=== PATIENT | male | born 1950 | race Caucasian/White ===

== ENCOUNTER 2018-09-17 15:51 | Observation (INO) | payer MEDICARE, OTHER ==
[2018-09-17] MEDS ORDERED: Sodium Chloride 0.9% 1000 ML 1,000 ML IV STA ×2 (16:17→19:00)
[2018-09-17] MEDS ORDERED: Zofran 4 MG/2 ML VIAL IV ONE (16:17)
--- NOTE | 2018-09-17 16:26 | ERPHSYRPT ---
- History of Present Illness Time Seen by Provider: 09/17/18 16:10 Historian: patient Exam Limitations: clinical condition Patient Subjective Stated Complaint: vomiting since yesterday Triage Nursing Assessment: Pt c/o of N&V since yesterday, vomits when he consumes food or drink, denies pain of abdomen with palpation, last BM today, BP 173/77, bowel sounds heard in all 4 quadrants, pulses normal, denies pain, doesn't appear to be in distress Physician History: PATIENT WITH A HISTORY OF HYPERTENSION AND TYPE 2 DIABETES COMPLAINS OF FREQUENT EPISODES OF EMESIS SINCE YESTERDAY EVERY 2 HOURS. HAS ASSOCIATED CRAMPY ABDOMINAL PAIN, ASSOCIATED WITH DIZZINESS AND WEAKNESS. DENIES DIARRHEA, FEVER, OR URINARY SYMPTOMS. Timing/Duration: week(s) Activities at Onset: none Quality: cramping Abdominal Pain Onset Location: periumbilical Pain Radiation: no radiation Severity of Pain-Max: mild Severity of Pain-Current: mild Modifying Factors: Improves With: vomiting Associated Symptoms: nausea, vomiting, weakness Previous symptoms: same symptoms as today Allergies/Adverse Reactions: codeine Allergy (Verified 09/17/18 16:06) Home Medications: Metformin HCl 500 mg [Glucophage 500 MG] 500 mg PO BID 11/09/14 [History] Carvedilol 3.125 mg [Coreg 3.125 MG] 3.125 mg PO BID 09/17/18 [History] Insulin NPH Human Isophane [Novolin N] 35 unit SQ BID 09/17/18 [History] Lisinopril/Hydrochlorothiazide [Lisinopril-Hctz 20-12.5 mg Tab] 1 each PO DAILY 09/17/18 [History] Pravastatin Sodium 40 mg PO DAILY 09/17/18 [History] Hx Tetanus, Diphtheria Vaccination/Date Given: Yes Hx Influenza Vaccination/Date Given: Yes Hx Pneumococcal Vaccination/Date Given: No - Review of Systems Constitutional: No Fever, No Chills Eyes: No Symptoms Ears, Nose, & Throat: No Symptoms Respiratory: No Symptoms, No Cough, No Dyspnea Cardiac: No Symptoms, No Chest Pain, No Edema, No Syncope Abdominal/Gastrointestinal: Abdominal Pain, Nausea, Vomiting, No Diarrhea Genitourinary Symptoms: No Symptoms, No Dysuria Musculoskeletal: No Symptoms, No Back Pain, No Neck Pain Skin: No Rash Neurological: No Dizziness, No Focal Weakness, No Sensory Changes Psychological: No Symptoms Endocrine: No Symptoms All Other Systems: Reviewed and Negative - Past Medical History Pertinent Past Medical History: Yes Cardiac History: High Cholesterol, Hypertension Endocrine Medical History: Diabetes Type II - Past Surgical History Past Surgical History: Yes Musculoskeletal: Orthopedic Surgery Other Surgical History: left rotator cuff - Social History Smoking Status: Never smoker Exposure to second hand smoke: Yes Drug Use: none Patient Lives Alone: No - Nursing Vital Signs Nursing Vital Signs: Initial Vital Signs Pulse Rate 64 09/17/18 15:56 Blood Pressure 173/77 09/17/18 15:56 O2 Sat by Pulse Oximetry 97 09/17/18 15:56 Pain Scale Pain Intensity 0 - Physical Exam General Appearance: no apparent distress, alert Eye Exam: PERRL/EOMI, eyes nml inspection Ears, Nose, Throat Exam: normal ENT inspection, pharynx normal, moist mucous membranes Neck Exam: normal inspection, non-tender, supple, full range of motion Respiratory Exam: normal breath sounds, lungs clear, No respiratory distress Cardiovascular Exam: regular rate/rhythm, normal heart sounds Gastrointestinal/Abdomen Exam: soft, normal bowel sounds, tenderness ( PERIUMBILICAL TENDERNESS), No mass Back Exam: normal inspection, normal range of motion, No CVA tenderness, No vertebral tenderness Extremity Exam: normal inspection, normal range of motion, pelvis stable Neurologic Exam: alert, oriented x 3, cooperative, normal mood/affect, nml cerebellar function, sensation nml, No motor deficits Skin Exam: normal color, warm, dry SpO2 Interpretation: normal SpO2: 97 Oxygen Delivery: Room Air - CT Exams Abdomen/Pelvis CT Interpretation: Discussed w/radiologist (COMPARED TO 02/14/2010, ENLARGING 1CM GALLSTONE AND ENLARGING 3.2CM RIGHT RENAL CYST. NONOBSTRUCTING 3MM BILATERAL RENAL STONES) Ordered Tests: Active Orders 24 hr Category Date Time Status Clean Catch Urine Specimen STAT Care 09/17/18 16:17 Active EKG-ER Only STAT Care 09/17/18 16:27 Active Orthostatic Vital Signs STAT Care 09/17/18 16:17 Active ABDOMEN AND PELVIS W CONTRAST [CT] Stat Exams 09/17/18 16:22 Taken AMYLASE Routine Lab 09/17/18 16:43 Completed CBC W DIFF Stat Lab 09/17/18 16:43 Completed CMP Routine Lab 09/17/18 16:43 Completed LIPASE Routine Lab 09/17/18 16:43 Completed MAGNESIUM Routine Lab 09/17/18 16:43 Completed TROPONIN Q3H Lab 09/17/18 16:43 Completed TROPONIN Q3H Lab 09/17/18 19:30 Ordered TROPONIN Q3H Lab 09/17/18 22:30 Ordered TROPONIN Q3H Lab 09/18/18 01:30 Ordered TROPONIN Q3H Lab 09/18/18 04:30 Ordered UA W/RFX UR CULTURE Stat Lab 09/17/18 16:00 Completed Medication Summary Discontinued Medications Generic Name Dose Route Start Last Admin Trade Name Freq PRN Reason Stop Dose Admin Sodium Chloride 1,000 mls @ 999 mls/hr 09/17/18 16:17 09/17/18 18:12 Sodium Chloride 0.9% 1000 Ml IV 09/17/18 17:17 Infused .Q1H1M STA Infusion Sodium Chloride Confirm 09/17/18 16:28 Sodium Chloride 0.9% 1000 Ml Administered 09/17/18 16:29 Dose 1,000 mls @ ud .ROUTE .STK-MED ONE Ondansetron HCl 4 mg 09/17/18 16:17 09/17/18 16:48 Zofran 4 Mg/2 Ml Vial IV 09/17/18 16:18 4 mg STAT ONE Administration Ondansetron HCl Confirm 09/17/18 16:28 Zofran 4 Mg/2 Ml Vial Administered 09/17/18 16:29 Dose 4 mg .ROUTE .STK-MED ONE Lab/Rad Data: Laboratory Result Diagrams 09/17/18 16:43 09/17/18 16:43 Laboratory Results 09/17/18 09/17/18 09/17/18 Range/Units 16:43 16:43 16:00 WBC 10.8 H (4.0-10.5) K/mm3 RBC 5.99 H (4.1-5.6) M/mm3 Hgb 17.6 (12.5-18.0) gm/dl Hct 50.2 H (42-50) % MCV 83.8 (78-100) fl MCH 29.3 (26-32) pg MCHC 35.1 (32-36) g/dl RDW 13.2 (11.5-14.0) % Plt Count 219 (150-450) K/mm3 MPV 10.3 H (6-9.5) fl Gran % 87.7 H (36.0-66.0) % Eos # (Auto) 0 (0-0.5) Absolute Lymphs (auto) 0.68 L (1.0-4.6) Absolute Monos (auto) 0.62 (0.0-1.3) Lymphocytes % 6.3 L (24.0-44.0) % Monocytes % 5.7 (0.0-12.0) % Eosinophils % 0.0 (0.00-5.0) % Basophils % 0.3 (0.0-0.4) % Absolute Granulocytes 9.51 H (1.4-6.9) Basophils # 0.03 (0-0.4) Sodium 138 (137-145) mmol/L Potassium 4.4 (3.5-5.1) mmol/L Chloride 94 L (98-107) mmol/L Carbon Dioxide 31 H (22-30) mmol/L Anion Gap 17.1 H (5-15) MEQ/L BUN 16 (9-20) mg/dL Creatinine 0.69 (0.66-1.25) mg/dL Estimated GFR > 60.0 ML/MIN Glucose 162 H (74-106) mg/dL Calcium 10.1 (8.4-10.2) mg/dL Magnesium 2.1 (1.6-2.3) mg/dL Total Bilirubin 0.80 (0.2-1.3) mg/dL AST 25 (17-59) U/L ALT 26 (0-50) U/L Alkaline Phosphatase 82 (38-126) U/L Troponin I < 0.012 (0.000-0.034) ng/mL Serum Total Protein 8.7 H (6.3-8.2) g/dL Albumin 5.3 H (3.5-5.0) g/dL Amylase 90 (30-110) U/L Lipase 59 (23-300) U/L Urine Color YELLOW (YELLOW) Urine Appearance CLEAR (CLEAR) Urine pH 6.0 (5-6) Ur Specific [place] 1.020 (1.005-1.025) Urine Protein 100 (Negative) Urine Ketones SMALL (NEGATIVE) Urine Blood NEGATIVE (0-5) Puneet/ul Urine Nitrite NEGATIVE (NEGATIVE) Urine Bilirubin NEGATIVE (NEGATIVE) Urine Urobilinogen NEGATIVE (0-1) mg/dL Ur Leukocyte Esterase NEGATIVE (NEGATIVE) Urine WBC (Auto) 0-2 (0-5) /HPF Urine RBC (Auto) 0-2 (0-2) /HPF U Epithel Cells (Auto) NONE SEEN (FEW) /HPF Urine Mucus (Auto) SLIGHT (NEGATIVE) /HPF Urine Culture Reflexed NO (NO) Urine Glucose NEGATIVE (NEGATIVE) mg/dL - Progress Progress: unchanged Progress Note: 09/17/18 18:48 IV NORMAL SALINE 1 LITER BOLUS, ZOFRAN 4MG, PROTONIX 40MG IV. HAD EPISODES OF DRY HEAVES AND EMESIS X 2, PHENERGAN 25MG IV Discussed with Dr.: Cornejo (DISCUSSED WITH DR CORNEJO AT 1845 FOR OBSERVATION) - Departure Time of Disposition: 20:00 Departure Disposition: Observation Clinical Impression: ACUTE GASTRITIS, INTRACTABLE EMESIS, CHOLELITHIASIS Condition: Stable Critical Care Time: No Referrals: NIDHI BAIG MD [Primary Care Provider] -
[2018-09-17] MEDS ORDERED: Zofran 4 MG/2 ML VIAL ONE (16:28)
[2018-09-17] MEDS ORDERED: Sodium Chloride 0.9% 1000 ML 1,000 ML ONE (16:28)
[2018-09-17 17:00] LABS: BASOPHIL % 0.3 % (0.0-0.4); Basophil (Absolute #) 0.03 (0-0.4); Eosinophil (Absolute #) 0 (0-0.5); Granulocyte Absolute (ANC) 9.51 (1.4-6.9); Granulocytes % 87.7 % (36.0-66.0); Hematocrit 50.2 % (42-50); Hemoglobin 17.6 gm/dl (12.5-18.0); Lymphocyte (Absolute #) 0.68 (1.0-4.6); Lymphocytes % 6.3 % (24.0-44.0); Mean Cell Volume 83.8 fl (78-100); Mean Corpuscular Hgb Concent. 35.1 g/dl (32-36); Mean Platelet Volume 10.3 fl (6-9.5); Monocyte (Absolute #) 0.62 (0.0-1.3); Monocytes % 5.7 % (0.0-12.0); Platelet Count 219 K/mm3 (150-450); Red Blood Count 5.99 M/mm3 (4.1-5.6); Red Cell Distribution Width 13.2 % (11.5-14.0); White Blood Count 10.8 K/mm3 (4.0-10.5)
[2018-09-17 17:03] LABS: Mean Corpuscular Hemoglobin 29.3 pg (26-32)
[2018-09-17 17:27] LABS: ALBUMIN 5.3 g/dL (3.5-5.0); ALKALINE PHOSPHATASE 82 U/L (38-126); AMYLASE 90 U/L (30-110); ANION GAP 17.1 MEQ/L (5-15); BLOOD UREA NITROGEN 16 mg/dL (9-20); CHLORIDE 94 mmol/L (98-107); Calcium 10.1 mg/dL (8.4-10.2); Carbon Dioxide 31 mmol/L (22-30); Creatinine 1 0.69 mg/dL (0.66-1.25); Glucose 162 mg/dL (74-106); LIPASE 59 U/L (23-300); Potassium 4.4 mmol/L (3.5-5.1); SGOT/AST 25 U/L (17-59); SGPT/ALT 26 U/L (0-50); SODIUM 138 mmol/L (137-145); Total Protein 8.7 g/dL (6.3-8.2)
[2018-09-17 17:29] LABS: TROPONIN < 0.012 ng/mL (0.000-0.034)
[2018-09-17 18:04] LABS: Appearance CLEAR (CLEAR); Bilirubin NEGATIVE (NEGATIVE); Blood NEGATIVE Ery/ul (0-5); Glucose NEGATIVE (NEGATIVE); Ketones SMALL (NEGATIVE); Leukocyte Esterase NEGATIVE (NEGATIVE); Nitrite NEGATIVE (NEGATIVE); Protein,Urine Dip 100 (Negative); Urobilinogen NEGATIVE mg/dL (0-1)
[2018-09-17] MEDS ORDERED: Phenergan 25 MG INJ ONE (18:49)
[2018-09-17] MEDS ORDERED: Phenergan 25 MG INJ IM PRN (18:54)
[2018-09-17] MEDS ORDERED: MORPHINE SULFATE 2 MG INJ IV PRN (18:54)
[2018-09-17] MEDS ORDERED: TYLENOL 325 MG PO PRN (18:54)
[2018-09-17] MEDS ORDERED: NovoLOG Insulin SQ PRN (18:54)
[2018-09-17] MEDS ORDERED: Zofran 4 MG/2 ML VIAL IV PRN (18:54)
[2018-09-17] MEDS ORDERED: Phenergan 25 MG INJ IV ONE (19:00)
[2018-09-17] MEDS: Sodium Chloride 0.9% 1000 ML 1,000 ML IV SCH (20:19)
[2018-09-17] MEDS: Coreg 3.125 MG PO SCH (21:58)
[2018-09-18] MEDS: Sodium Chloride 0.9% 1000 ML 1,000 ML IV SCH (04:14)
[2018-09-18] MEDS ORDERED: Lactated Ringers 1,000 ML IV ONE (06:28)
[2018-09-18 07:15] VITALS: O2SAT 96
--- NOTE | 2018-09-18 08:39 | XRAY ---
Indication: Abdominal pain and emesis. History kidney stones. Multiple contiguous axial images obtained through the abdomen and pelvis using 80 cc Isovue 370 contrast only. Comparison: CT renal stone study February 14, 2010. Lung bases demonstrates moderate bibasilar dependent atelectasis/scarring. Stable tiny left base calcified granuloma. No infiltrate or effusion. Heart is not enlarged. Noncontrasted stomach and bowel loops appear nonobstructed. Normal appendix. Stable mild sigmoid diverticulosis without diverticulitis. No free fluid/air. Interval enlarging 3.2 cm right renal cyst. 7 mm left mid renal cortical cyst not well seen on previous noncontrast exam. Stable 3 mm calculus in the left lower renal calyx. Stable mild nonspecific bilateral perinephric stranding. No hydronephrosis or hydroureter. Also interval enlarging 1 cm gallstone. Stable benign appearing prostate calcifications. Remaining liver, gallbladder, pancreas, spleen, adrenal glands, kidneys, ureters, and bladder appear unremarkable. There remains mild aortoiliac calcifications. No AAA or pathologic retroperitoneal lymphadenopathy. Osseous structures intact again with mild degenerative changes throughout the spine and minimal levo scoliosis. Stable small fatty umbilical hernia. Impression: 1. Nonobstructing left renal micro-calculus. Bilateral renal cysts. 2. Enlarging cholelithiasis without cholecystitis. 3. Again sigmoid diverticulosis, benign prostate calcifications, and small fatty umbilical hernia. CT DI 20.82
[2018-09-18] MEDS ORDERED: Zestril 10 MG PO SCH (10:00)
[2018-09-18] MEDS ORDERED: FLUZONE QUAD (36mo-64yo) 2018-2019 SYRINGE IM ONE (10:00)
[2018-09-18] MEDS ORDERED: hydroDIURIL 25 MG PO SCH (10:00)
[2018-09-18] MEDS ORDERED: NON-FORMULARY ITEM (Pravastatin Sodium [Pravastatin Sodium] 40 MG) PO SCH (10:00)
[2018-09-18] MEDS ORDERED: PROTONIX 40 MG IV IV SCH (10:00)
[2018-09-18] MEDS: Coreg 3.125 MG PO SCH (10:39)
--- NOTE | 2018-09-18 11:00 | XRAY ---
Indication: Gallstone on recent CT. Two-dimensional gallbladder sonogram performed. Comparison: None Gallbladder normally distended with a 1 cm mobile stone. No gallbladder wall thickening or pericholecystic fluid. Common bile duct measures 2.8 mm. No intrahepatic biliary distention. Right kidney measures 13.4 cm in length with a 2.6 cm upper pole cyst. No solid renal mass or hydronephrosis. Impression: 1. Solitary cholelithiasis without cholecystitis or abnormal biliary distention. 2. Right renal cyst.
[2018-09-18 12:19] VITALS: BP 160/72; PULSE 58
--- NOTE | 2018-09-18 14:28 | PCM.DCORD ---
- Discharge Discharge Date: 09/18/18 Disposition: Home, Self-Care Prescriptions: Continue Metformin HCl 500 mg [Glucophage 500 MG] 500 mg PO BID Pravastatin Sodium 40 mg PO DAILY Insulin NPH Human Isophane [Novolin N] 35 unit SQ BID Carvedilol 3.125 mg [Coreg 3.125 MG] 3.125 mg PO BID Lisinopril/Hydrochlorothiazide [Lisinopril-Hctz 20-12.5 mg Tab] 1 each PO DAILY Follow up with: NIDHI BAIG MD [Primary Care Provider] - 1 Week
[2018-09-18] MEDS ORDERED: ZOCOR 20MG PO SCH (22:00)
--- NOTE | 2018-09-19 13:37 | SSS ---
DISCHARGE DIAGNOSES: 1) RIGHT UPPER QUADRANT ABDOMINAL PAIN. 2) CHOLELITHIASIS. 3) DIABETES MELLITUS TYPE 2. 4) NONOBSTRUCTING NEPHROLITHIASIS. 5) SIGMOID DIVERTICULOSIS. HISTORY: The patient is a 68 year-old white male patient who presented to the emergency room with complaints of right upper quadrant pain and vomiting. The patient has a known history of cholelithiasis from CT scan back in 2013. The patient was dehydrated from the vomiting and due to the findings of the stone he was felt to need to be admitted to the hospital for observation and possible surgical consultation. PAST MEDICAL/SURGICAL HISTORY: Otherwise significant for his diabetes mellitus type 2. HOME MEDICATIONS: Metformin 500 mg b.i.d., carvedilol 3.125 mg b.i.d., Novolin insulin 35 units b.i.d. and lisinopril hydrochlorothiazide 20/12.5 mg daily, Pravastatin 40 mg daily. ALLERGIES: CODEINE. PHYSICAL EXAMINATION: The patient's vital signs on admission showed a pulse of 64, blood pressure 173/77. O2 saturation 97%. HEENT: Normocephalic, atraumatic. Pupils equal round reactive to light. Extraocular movements intact. Oropharynx is pink and moist. NECK: Supple without lymphadenopathy, thyromegaly or JVD. CHEST: Clear to auscultation. HEART: Regular rate and rhythm. ABDOMEN: By the time I saw him the next morning was soft, nontender, nondistended. No palpable masses. No guarding or rebound. EXTREMITIES: Without clubbing, cyanosis or edema. NEUROLOGIC: The patient is alert and oriented x3. LAB DATA AND TESTS: Showed white blood cell count slightly elevated 10,800, hemoglobin 17.6, PLT count 217,000. His electrolytes were essentially normal. BUN 16, creatinine 0.69. He did have UA which showed small ketones but was otherwise essentially negative. He had CT scan performed which showed enlarging gallstone without evidence of obstruction. He had also nonobstructing kidney stones and sigmoid diverticulosis without diverticulitis. HOSPITAL COURSE: The patient was admitted to medicine simms and given IV fluids. By the next morning he was essentially pain free and had no acute abdominal findings. We ordered ultrasound of the gallbladder which was essentially negative other than the presence of a stone. The patient was allowed to have a meal which he tolerated quite well and therefore appeared to not have any pending need for surgery. He was therefore discharged home with instructions to follow up with his regular doctor, Dr. Mendez, next week for possible surgical consultation in the future for a possible elective cholecystectomy. The patient was instructed to continue his home medications and to call if he had any further problems in the interim.
== END 2018-09-18 15:25 | disposition home or self-care (01) ==
LOC: ED 15:51 → MED SURG 19:38
PROVIDERS: ADMIT Family Medicine; ATTEND Family Medicine
DX: K80.20 Calculus of gallbladder without cholecystitis without obstruction (principal); E11.9 Type 2 diabetes mellitus without complications; Z79.4 Long term (current) use of insulin; N20.0 Calculus of kidney; K57.90 Diverticulosis of intestine, part unspecified, without perforation or abscess without bleeding; Z79.899 Other long term (current) drug therapy; Z23 Encounter for immunization
CPT/HCPCS: 36415; 74177; 76705; 80053; 81001; 82150; 82962; 83690; 83735; 84484; 85025; 93005; 96360; 96374; 96375; 99285; G0378; 90662; G0008; J2405; J2550; Q9967; A9270-GY

== ENCOUNTER 2018-11-03 10:59 | Day surgery (SDC) | payer MEDICARE, OTHER ==
--- NOTE | 2018-11-03 10:05 | HP ---
DATE OF SURGERY: 11/03/2018 HISTORY OF PRESENT ILLNESS: The patient is a 68 year-old had some vomiting, dry heaving. CT scan showed cholelithiasis. He also had some gallstones. No jaundice. No change in bowel movements. Feeling better now. It was felt that he had symptomatic cholelithiasis chronic cholecystitis. I recommend cholecystectomy. PAST MEDICAL HISTORY: Diabetes, hypertension, hypercholesterolemia. PAST SURGICAL HISTORY: Shoulder surgery in the past. MEDICATIONS: Metformin, aspirin, carvedilol, Pravastatin, lisinopril hydrochlorothiazide. ALLERGIES: CODEINE. FAMILY HISTORY: Negative in regards to this problem. SOCIAL HISTORY: No smoking or alcohol abuse. REVIEW OF SYSTEMS: Twelve systems reviewed. No chest pain or palpitations other systems negative or noncontributory as above and per preadmission questionnaire. PHYSICAL EXAMINATION: GENERAL: No acute distress. HEENT: Sclerae nonicteric. NECK: No JVD. CHEST: Equal excursion, nonlabored breathing. CVS: Regular rate and rhythm. ABDOMEN: Soft. No peritoneal signs. EXTREMITIES: No significant edema. NEURO: Alert, oriented, moving extremities symmetrically. No gross motor deficits noted. IMPRESSION: Symptomatic cholelithiasis, chronic cholecystitis. I feel the patient will benefit from cholecystectomy. He was shown the gallbladder pamphlet, explained the procedure in detail but not limited to bleeding or infection, risk of trocar injury or hernia, small risk of bowel, bladder or blood vessel injury, small risk of bile leak, bile duct injury, retained stone or sludge possibly requiring further procedure either open or ERCP, general risk of anesthesia, deep venous thrombosis, pulmonary embolism, pneumonia, perioperative risk of aches, pains, bloating, constipation and/or loose stools possibly even chronic in nature as well as the possibility may not improve his symptoms or that he might need an open procedure. He understands and agrees to the planned procedure, will proceed with laparoscopic cholecystectomy with possible open when OR time available.
[~2018-11-03 10:59] MED LIST: Lactated Ringers 1,000 ML IV ONE; Lactated Ringers 1,000 ML IV SCH; MEFOXIN 2 GM PREMIX** 2 GM/50 ML ML IV ONE; Sensorcaine 0.25% 10 ML ONE
[2018-11-03] MEDS ORDERED: Versed 2 MG/2 ML Injection IV ONE (11:00)
[2018-11-03] MEDS ORDERED: BRIDION 200MG/2ML IV ONE (11:00)
[2018-11-03] MEDS ORDERED: SUBLIMAZE 250 MCG/5 ML IJ ONE (11:00)
[2018-11-03] MEDS ORDERED: TRANDATE 20 MG/5 ML SYRINGE IV ONE (11:00)
[2018-11-03] MEDS ORDERED: Zemuron 100 MG/10 ML IJ ONE (11:00)
[2018-11-03] MEDS ORDERED: DIPRIVAN 200 MG/20 ML IV ONE (11:00)
--- NOTE | 2018-11-03 12:48 | XRAY ---
Indication: Right lower lobe crackles. Comparison: November 09, 2014. Portable chest again demonstrates normal heart and lungs. Bony thorax intact with minimal degenerative changes. No new/acute findings.
[2018-11-03] MEDS ORDERED: SUBLIMAZE 100 MCG/2 ML ONE (14:43)
[2018-11-03] MEDS ORDERED: Zofran 4 MG/2 ML VIAL IV STA (15:13)
[2018-11-03] MEDS ORDERED: MORPHINE SULFATE 4 MG INJ IV ONE (15:18)
[2018-11-03] MEDS ORDERED: MORPHINE SULFATE 4 MG INJ ONE (15:19)
--- NOTE | 2018-11-03 15:39 | OP ---
SURGERY DATE/TIME: 11/03/2018 1328 PREOPERATIVE DIAGNOSIS: Symptomatic cholelithiasis, chronic cholecystitis. POSTOPERATIVE DIAGNOSIS: Symptomatic cholelithiasis, chronic cholecystitis. PROCEDURE: Laparoscopic cholecystectomy. SURGEON: Dr. Dakota Woo. ANESTHESIA: General. ESTIMATED BLOOD LOSS: Minimal. INDICATIONS: As noted above. Risks and benefits explained in detail but not limited to and consent obtained. DESCRIPTION OF PROCEDURE AND FINDINGS: The patient was taken to the OR. General anesthesia induced. Abdomen prepped and draped in the usual sterile fashion. After official time out and no disagreement with planned procedure, a transverse incision made supraumbilical area. Fascia grasped and pulled upward. Veress needle inserted and tested with saline. Pneumoperitoneum accomplished insufflating opening pressure of 0-15. An 11 mm bladeless port and camera inserted without difficulty followed by two - 5 mm right upper quadrant ports and 5 mm epigastric port. Gallbladder grasped and retracted over the edge of the liver and laterally away from Calot's triangle dissecting posterior, lateral to anterior fashion. Slowly and carefully cystic duct infundibular area there was quite a bit of chronic inflammatory reaction, quite vascular but slowly and carefully dissected until critical view obtained anterior and posteriorly. The cystic duct was then clipped x3 and divided in usual fashion followed by clipping the main cystic artery x3 and divided in usual fashion. Gallbladder is slowly and carefully dissected free from its quite thick dense, vascular inflammatory reaction to the liver bed staying directly on the gallbladder wall. This did require clipping additional oozing side branches off the cystic artery as necessary directly on the gallbladder wall as this was quite a vascular gallbladder. Just prior to releasing final attachments to the anterior edge of the liver the liver bed re-inspected. Clips noted to be in place in cystic duct and cystic artery stumps. There are no signs of any active bleeding or bile leakage. With the clips noted to be in place in cystic duct and cystic artery stumps, no signs of any active bleeding or bile leakage. It was felt there was no benefit from drain placement. The gallbladder released from final attachments to the anterior edge of the liver, placed in Pleatman sac, pulled up into the 09/11 supraumbilical port site. Fascia grasped slightly with a clamp allowing the gallbladder and Pleatman sac to be pulled free and passed off. Fascial defect closed with puncture closure device with #1 Vicryl. 09/11 fascial defect closed with puncture closure device with #1 Vicryl under direct vision of the camera. At this point checked the gallbladder bed. Good hemostasis noted. No signs of any active bleeding or bile leakage. It was felt there was no benefit from drain placement. Irrigation irrigating until clear. Pneumoperitoneum decompressed. The wound irrigated out. Skin incision closed with 4-0 Vicryl, Steri-Strips and sterile dressing applied. 0.25% Marcaine local injected along the skin incision fascial defects. The patient tolerated the procedure well. He was transferred to the recovery room in stable condition. There were no immediate complications. Findings discussed with the family out in the waiting area.
[2018-11-03 16:03] VITALS: PULSE 58
[2018-11-03 16:16] VITALS: BP 147/79; O2SAT 94
== END 2018-11-03 16:36 | disposition home or self-care (01) ==
LOC: SDC 10:59
PROVIDERS: ATTEND Surgery
DX: K80.10 Calculus of gallbladder with chronic cholecystitis without obstruction (principal); I10 Essential (primary) hypertension; E78.00 Pure hypercholesterolemia, unspecified; E11.9 Type 2 diabetes mellitus without complications; Z79.4 Long term (current) use of insulin; Z79.899 Other long term (current) drug therapy
CPT/HCPCS: 71045; 82962; 88304; 94250; J0694; J2250; J2270; J2405; J2704; J3010

== ENCOUNTER 2020-05-20 08:51 | Observation (INO) | payer MEDICARE, OTHER ==
[2020-05-20] MEDS ORDERED: BABY ASPIRIN 81 MG CHEW PO ONE (08:55)
[2020-05-20] MEDS ORDERED: BABY ASPIRIN 81 MG CHEW ONE (09:01)
[2020-05-20 09:09] LABS: BASOPHIL % 0.4 % (0.0-0.4); Basophil (Absolute #) 0.03 (0-0.4); Eosinophil % 3.1 % (0.00-5.0); Eosinophil (Absolute #) 0.24 (0-0.5); Hematocrit 49.2 % (42-50); Hemoglobin 16.8 gm/dl (12.5-18.0); Lymphocyte (Absolute #) 1.11 (1.0-4.6); Lymphocytes % 14.3 % (24.0-44.0); Mean Cell Volume 87.1 fl (78-100); Mean Corpuscular Hemoglobin 29.7 pg (26-32); Mean Corpuscular Hgb Concent. 34.1 g/dl (32-36); Mean Platelet Volume 10.3 fl (7.5-11.0); Monocyte (Absolute #) 0.66 (0.0-1.3); Monocytes % 8.5 % (0.0-12.0); Neutrophil % 73.7 % (36.0-66.0); Platelet Count 153 K/mm3 (150-450); Red Blood Count 5.65 M/mm3 (4.1-5.6); Red Cell Distribution Width 13.4 % (11.5-14.0); White Blood Count 7.7 K/mm3 (4.0-10.5)
--- NOTE | 2020-05-20 09:15 | ERPHSYRPT ---
- History of Present Illness Time Seen by Provider: 05/20/20 08:53 Source: patient Exam Limitations: no limitations Patient Subjective Stated Complaint: PT states "I was getting a stress test and I had the iv meds and I got weak all of a sudden and nauseated and I broke out in a sweat. I had a bout of diarrhea and vomited." Triage Nursing Assessment: Pt presented alert and oriented X 3, skin pwd pt ambulates with an upright steady gait, able to speak in clear full sentences. PT in no apparent respiratory distress. Physician History: Patient reports to us from a stress test. Apparently during his stress test, the patient had an episode of shortness of breath, nausea, felt like he was going to vomit. He now feels better, back to his baseline. He was originally getting the stress test to undergo a cardiac work-up. I did discuss it with Dr. Recio who was at bedside for the stress test evaluation. Location: chest Quality: SOB, N/V Radiation: none Severity: moderate Duration: 5-10 mins Timing: just TECHNICAL PROFESSIONAL Modifying factors/associated signs and symptoms: none tried Allergies/Adverse Reactions: codeine Allergy (Verified 11/03/18 11:15) Home Medications: Metformin HCl 500 mg [Glucophage 500 MG] 500 mg PO BID 11/09/14 [History] Carvedilol 3.125 mg [Coreg 3.125 MG] 3.125 mg PO BID 09/17/18 [History] Insulin NPH Human Isophane [Novolin N] 30 unit SQ BID 09/17/18 [History] Lisinopril/Hydrochlorothiazide [Lisinopril-Hctz 20-12.5 mg Tab] 0.5 each PO DAILY 09/17/18 [History] Hx Tetanus, Diphtheria Vaccination/Date Given: No Hx Influenza Vaccination/Date Given: Yes Hx Pneumococcal Vaccination/Date Given: No Immunizations Up to Date: Yes Travel Risk - International Travel Have you traveled outside of the country in past 3 weeks: No - Coronavirus Screening Are you exhibiting any of the following symptoms?: No Close contact with a COVID-19 positive Pt in past 14-21 Days: No - Review of Systems Constitutional: No Fever, No Chills Eyes: No Symptoms Ears, Nose, & Throat: No Symptoms Respiratory: Dyspnea, No Cough Cardiac: No Chest Pain, No Edema, No Syncope Abdominal/Gastrointestinal: No Abdominal Pain, No Nausea, No Vomiting, No Diarr hea Genitourinary Symptoms: No Dysuria Musculoskeletal: No Back Pain, No Neck Pain Skin: No Rash Neurological: No Dizziness, No Focal Weakness, No Sensory Changes Psychological: No Symptoms Endocrine: No Symptoms All Other Systems: Reviewed and Negative - Past Medical History Pertinent Past Medical History: Yes Neurological History: No Pertinent History ENT History: No Pertinent History Cardiac History: High Cholesterol, Hypertension Respiratory History: Sleep Apnea Endocrine Medical History: Diabetes Type II Musculoskeletal History: No Pertinent History GI Medical History: Gallbladder Disease History: Other Psycho-Social History: No Pertinent History Male Reproductive Disorders: No Pertinent History Other Medical History: kidney stones - Past Surgical History Past Surgical History: Yes Neuro Surgical History: No Pertinent History Cardiac: No Pertinent History Respiratory: No Pertinent History Gastrointestinal: No Pertinent History Genitourinary: No Pertinent History Musculoskeletal: Orthopedic Surgery Male Surgical History: No Pertinent History Other Surgical History: left rotator cuff - Social History Smoking Status: Never smoker Exposure to second hand smoke: Yes Drug Use: none Patient Lives Alone: No - Nursing Vital Signs Nursing Vital Signs: Initial Vital Signs Temperature 97.6 F 05/20/20 08:52 Pulse Rate 68 05/20/20 08:52 Respiratory Rate 22 05/20/20 08:52 Blood Pressure 152/79 05/20/20 08:52 O2 Sat by Pulse Oximetry 97 05/20/20 08:52 Pain Scale Pain Intensity 0 - Physical Exam General Appearance: no apparent distress, alert Eye Exam: PERRL/EOMI, eyes nml inspection Ears, Nose, Throat Exam: normal ENT inspection, TMs normal, pharynx normal, moist mucous membranes Neck Exam: normal inspection, non-tender, supple, full range of motion Respiratory Exam: normal breath sounds, lungs clear, No respiratory distress Cardiovascular Exam: regular rate/rhythm, normal heart sounds, normal peripheral pulses Gastrointestinal/Abdomen Exam: soft, normal bowel sounds, No tenderness, No mass Back Exam: normal inspection, normal range of motion, No CVA tenderness, No vertebral tenderness Extremity Exam: normal inspection, normal range of motion, pelvis stable Neurologic Exam: alert, oriented x 3, cooperative, normal mood/affect, nml cerebellar function, nml station & gait, sensation nml, No motor deficits Skin Exam: normal color, warm, dry, No rash Lymphatic Exam: No adenopathy SpO2 Interpretation: normal SpO2: 97 - Course Nursing assessment & vital signs reviewed: Yes EKG Interpreted by Me: RATE - Radiology Exams Chest X-ray Interpretation: Interpreted by me, No Pneumothorax Ordered Tests: Active Orders 24 hr Category Date Time Status Vocational Rehabilitation Specialist STAT Care 05/20/20 08:55 Active EKG-ER Only STAT Care 05/20/20 08:55 Active IV Insertion STAT Care 05/20/20 08:55 Active CHEST 2 VIEWS (PA AND LAT) Stat Exams 05/20/20 08:55 Completed CBC W DIFF Stat Lab 05/20/20 09:09 Completed CMP Stat Lab 05/20/20 09:09 Completed NT PRO BNP Stat Lab 05/20/20 09:09 Completed TROPONIN Q3H Lab 05/20/20 09:09 Completed TROPONIN Q3H Lab 05/20/20 12:00 Ordered TROPONIN Q3H Lab 05/20/20 15:00 Ordered TROPONIN Q3H Lab 05/20/20 18:00 Ordered TROPONIN Q3H Lab 05/20/20 21:00 Ordered Medication Summary Discontinued Medications Generic Name Dose Route Start Last Admin Trade Name Freq PRN Reason Stop Dose Admin Aspirin 324 mg 05/20/20 08:55 05/20/20 09:01 Baby Aspirin 81 Mg Chew PO 05/20/20 08:56 324 mg STAT ONE Administration Aspirin Confirm 05/20/20 09:01 Baby Aspirin 81 Mg Chew Administered 05/20/20 09:02 Dose 324 mg .ROUTE .STK-MED ONE Ondansetron HCl 8 mg 05/20/20 09:35 05/20/20 09:37 Zofran 4 Mg/2 Ml Vial IV 05/20/20 09:36 8 mg STAT ONE Administration Ondansetron HCl Confirm 05/20/20 09:37 Zofran 4 Mg/2 Ml Vial Administered 05/20/20 09:38 Dose 8 mg .ROUTE .STK-MED ONE Lab/Rad Data: Laboratory Result Diagrams 05/20/20 09:09 05/20/20 09:09 Laboratory Results 05/20/20 05/20/20 05/20/20 Range/Units 09:09 09:09 09:09 WBC 7.7 (4.0-10.5) K/mm3 RBC 5.65 H (4.1-5.6) M/mm3 Hgb 16.8 (12.5-18.0) gm/dl Hct 49.2 (42-50) % MCV 87.1 (78-100) fl MCH 29.7 (26-32) pg MCHC 34.1 (32-36) g/dl RDW 13.4 (11.5-14.0) % Plt Count 153 (150-450) K/mm3 MPV 10.3 (7.5-11.0) fl Gran % 73.7 H (36.0-66.0) % Eos # (Auto) 0.24 (0-0.5) Absolute Lymphs (auto) 1.11 (1.0-4.6) Absolute Monos (auto) 0.66 (0.0-1.3) Lymphocytes % 14.3 L (24.0-44.0) % Monocytes % 8.5 (0.0-12.0) % Eosinophils % 3.1 (0.00-5.0) % Basophils % 0.4 (0.0-0.4) % Absolute Granulocytes 5.70 (1.4-6.9) Basophils # 0.03 (0-0.4) Sodium 138 (137-145) mmol/L Potassium 4.5 (3.5-5.1) mmol/L Chloride 101 (98-107) mmol/L Carbon Dioxide 27 (22-30) mmol/L Anion Gap 14.4 (5-15) MEQ/L BUN 15 (9-20) mg/dL Creatinine 0.87 (0.66-1.25) mg/dL Estimated GFR > 60.0 ML/MIN Glucose 188 H (74-106) mg/dL Calcium 9.5 (8.4-10.2) mg/dL Total Bilirubin 0.80 (0.2-1.3) mg/dL AST 29 (17-59) U/L ALT 32 (0-50) U/L Alkaline Phosphatase 94 (38-126) U/L Troponin I < 0.012 (0.000-0.034) ng/mL NT-Pro-B Natriuret Pep 43.3 (0-900) pg/mL Serum Total Protein 7.6 (6.3-8.2) g/dL Albumin 4.5 (3.5-5.0) g/dL - Progress Progress: improved Progress Note: 05/20/20 09:14 We'll obtain basic labs, fluids, EKG, troponin, chest x-ray - EKG shows no ST changes - my read. See full read below. - O2 saturations consistently greater than 95%. - CXR shows no pneumonia, pneumothorax - my read 05/20/20 09:59 Patient feeling somewhat improved. First troponin negative. I did discuss with Dr. Smith. She will admit the patient for cardiac rule out, continue close observation. Will see patient in: hospital (observation) Counseled pt/family regarding: lab results, diagnosis, rad results - Departure Departure Disposition: Observation Clinical Impression: Chest pain in adult Condition: Stable Critical Care Time: No Referrals: NIDHI BAIG MD [Primary Care Provider] -
--- NOTE | 2020-05-20 09:19 | XRAY ---
Indication: Pneumothorax. Episode during stress test. Comparison: November 03, 2018. PA/lateral chest demonstrates minimal peripheral lingula fibrosis/scarring. No focal infiltrate, consolidation, effusion, or pneumothorax. Heart is not enlarged. Bony thorax intact again with mild degenerative changes. Impression: Nonacute chest with chronic features.
[2020-05-20] MEDS ORDERED: Zofran 4 MG/2 ML VIAL IV ONE (09:35)
[2020-05-20] MEDS ORDERED: Zofran 4 MG/2 ML VIAL ONE (09:37)
[2020-05-20 09:43] LABS: ALBUMIN 4.5 g/dL (3.5-5.0); ALKALINE PHOSPHATASE 94 U/L (38-126); ANION GAP 14.4 MEQ/L (5-15); BLOOD UREA NITROGEN 15 mg/dL (9-20); CHLORIDE 101 mmol/L (98-107); Calcium 9.5 mg/dL (8.4-10.2); Carbon Dioxide 27 mmol/L (22-30); Creatinine 1 0.87 mg/dL (0.66-1.25); Glucose 188 mg/dL (74-106); NT PRO BNP 43.3 pg/mL (0-900); Potassium 4.5 mmol/L (3.5-5.1); SGOT/AST 29 U/L (17-59); SGPT/ALT 32 U/L (0-50); SODIUM 138 mmol/L (137-145); Total Protein 7.6 g/dL (6.3-8.2)
[2020-05-20] MEDS ORDERED: Zofran 4 MG/2 ML VIAL IV PRN (10:01)
[2020-05-20] MEDS ORDERED: TYLENOL 325 MG PO PRN (10:01)
[2020-05-20] MEDS ORDERED: MAALOX ES 30 ML UNIT DOSE PO PRN (10:01)
[2020-05-20] MEDS ORDERED: Senokot-S Tablet PO PRN (10:01)
[2020-05-20] MEDS ORDERED: MILK OF MAGNESIA 30 ML PO PRN (10:01)
[2020-05-20] MEDS: hydroDIURIL 25 MG PO SCH (13:12)
[2020-05-20] MEDS: Zestril 10 MG PO SCH (13:12)
[2020-05-20] MEDS: Coreg 3.125 MG PO SCH ×2 (13:14→21:56)
[2020-05-20] MEDS: Novolin N SQ SCH (16:51)
[2020-05-21 06:12] LABS: Hematocrit 47.8 % (42-50); Hemoglobin 16.1 gm/dl (12.5-18.0); Mean Cell Volume 87.2 fl (78-100); Mean Corpuscular Hemoglobin 29.4 pg (26-32); Mean Corpuscular Hgb Concent. 33.7 g/dl (32-36); Mean Platelet Volume 10.7 fl (7.5-11.0); Platelet Count 176 K/mm3 (150-450); Red Blood Count 5.48 M/mm3 (4.1-5.6); Red Cell Distribution Width 13.4 % (11.5-14.0); White Blood Count 7.2 K/mm3 (4.0-10.5)
[2020-05-21 07:08] LABS: ALBUMIN 4.3 g/dL (3.5-5.0); ALKALINE PHOSPHATASE 75 U/L (38-126); ANION GAP 14.2 MEQ/L (5-15); BLOOD UREA NITROGEN 15 mg/dL (9-20); CHLORIDE 100 mmol/L (98-107); Calcium 9.4 mg/dL (8.4-10.2); Carbon Dioxide 30 mmol/L (22-30); Creatinine 1 0.86 mg/dL (0.66-1.25); Glucose 149 mg/dL (74-106); Potassium 4.9 mmol/L (3.5-5.1); SGOT/AST 25 U/L (17-59); SGPT/ALT 28 U/L (0-50); SODIUM 139 mmol/L (137-145); Total Protein 7.4 g/dL (6.3-8.2)
[2020-05-21] MEDS: Novolin N SQ SCH (08:02)
[2020-05-21 08:26] VITALS: PULSE 64
[2020-05-21 09:56] LABS: Risk Ratio 3.3
[2020-05-21] MEDS ORDERED: [UNRECOGNIZED DRUG - OTHER] PO SCH (10:00)
[2020-05-21] MEDS ORDERED: LISINOPRIL PO SCH (10:00)
[2020-05-21] MEDS ORDERED: HYDROCHLOROTHIAZIDE PO SCH (10:00)
[2020-05-21] MEDS: hydroDIURIL 25 MG PO SCH (10:02)
[2020-05-21] MEDS: Coreg 3.125 MG PO SCH (10:03)
[2020-05-21] MEDS: Zestril 10 MG PO SCH (10:03)
[2020-05-21 12:43] VITALS: BP 143/64; O2SAT 96
--- NOTE | 2020-05-21 16:13 | PCM.SSS ---
History of Present Illness - Chief Complaint Chief Complaint: r/o mi--n/v History of Present Illness: is a 70 year old male pt of Dr. Rincon with DMII, HTN, hyperlipidemia, kidney stones, and GB dz who was admitted through ER with weakness, vomiting, and diarrhea during and after a stress test. He was on the treadmill, completed about 7 min, then felt very weak and vomited & had diarrhea. He was sent to ER to r/o AR. First troponin was neg, and EKG nonacute. Was admitted for CP r/o. Troponins neg x 5. Will be discharged to home. Is getting a sleep study in 3d. He has apparently been having spells like this during work, with lightheadedness and nausea, about 1-2x/yr. His BS are fine during these episodes. His fasting BS usually 120, goes to 90 during the with activity. For the past 3 mo he has been tired. His says he wears the CPAP but "rips it off" during the night multiple times to breathe. - Review of Systems Constitutional: Fatigue, Weakness Respiratory: Cough (chronic) Abdominal/Gastrointestinal: Vomiting, Diarrhea All Other Systems: Reviewed and Negative Medications & Allergies Home Medications: Home Medication List Metformin HCl 500 mg [Glucophage 500 MG] 500 mg PO BID 11/09/14 [History Confirmed 05/20/20] Carvedilol 3.125 mg [Coreg 3.125 MG] 3.125 mg PO BID 09/17/18 [History Confirmed 05/20/20] Insulin NPH Human Isophane [Novolin N] 30 unit SQ BID 09/17/18 [History Con firmed 05/20/20] Lisinopril/Hydrochlorothiazide [Lisinopril-Hctz 20-12.5 mg Tab] 0.5 tab PO DAILY 09/17/18 [History Confirmed 05/20/20] Atorvastatin Calcium [Lipitor] 40 mg PO HS 05/20/20 [History Confirmed 05/20/20] Allergies/Adverse Reactions: Allergies Allergy/AdvReac Type Severity Reaction Status Date / Time codeine Allergy Verified 11/03/18 11:15 - Past Medical History Past Medical History: Yes Neurological History: No Pertinent History ENT History: No Pertinent History Cardiac History: High Cholesterol, Hypertension Respiratory History: Sleep Apnea Endocrine Medical History: Diabetes Type II Musculoskelatal History: No Pertinent History GI Medical History: Gallbladder Disease History: Other Pyscho-Social History: No Pertinent History Male Reproductive Disorders: No Pertinent History Comment: kidney stones - Past Surgical History Past Surgical History: Yes Neuro Surgical History: No Pertinent History Cardiac History: No Pertinent History Respiratory Surgery: No Pertinent History GI Surgical History: No Pertinent History Genitourinary Surgical Hx: No Pertinent History Musculskeletal Surgical Hx: Orthopedic Surgery Male Surgical History: No Pertinent History Other Surgical History: left rotator cuff - Social History Smoking Status: Never smoker Exposure to second hand smoke: Yes Alcohol: Occasionally Drug Use: none - Physical Exam Vital Signs: Vital Signs - 24 hr Temp Pulse Resp BP Pulse Ox 05/21/20 12:00 98.6 F 64 18 143/64 96 05/21/20 08:00 98.1 F 64 22 158/66 97 05/21/20 05:37 96 05/21/20 04:00 97.7 F 62 24 144/67 96 05/21/20 00:00 98.5 F 63 15 141/68 96 05/20/20 20:07 96 05/20/20 20:00 97.8 F 86 12 158/78 97 General Appearance: no apparent distress, alert Neurologic Exam: oriented x 3, cooperative Eye Exam: eyes nml inspection Ears, Nose, Throat Exam: moist mucous membranes Neck Exam: normal inspection, non-tender, No lymphadenopathy Respiratory Exam: normal breath sounds, lungs clear, No crackles/rales, No rhonchi, No wheezing Cardiovascular Exam: regular rate/rhythm, normal heart sounds, No murmur Back Exam: normal inspection, No rash Extremity Exam: normal inspection, No pedal edema, No swelling Skin Exam: normal color, warm, dry, No rash Results - Labs Lab/Micro Results: Accuchecks Date 05/21/20 Date 05/21/20 Date 05/21/20 Date 05/21/20 Date 05/20/20 Time 11:30 Time 11:30 Time 07:30 Time 07:30 Time 17:58 Accucheck Value: 149 Accucheck Value: 149 Accucheck Value: 156 Accucheck Value: 132 Lab Results-Last 24 Hours 05/20/20 05/20/20 05/20/20 Range/Units 15:30 18:24 21:13 WBC (4.0-10.5) K/mm3 RBC (4.1-5.6) M/mm3 Hgb (12.5-18.0) gm/dl Hct (42-50) % MCV (78-100) fl MCH (26-32) pg MCHC (32-36) g/dl RDW (11.5-14.0) % Plt Count (150-450) K/mm3 MPV (7.5-11.0) fl Sodium (137-145) mmol/L Potassium (3.5-5.1) mmol/L Chloride (98-107) mmol/L Carbon Dioxide (22-30) mmol/L Anion Gap (5-15) MEQ/L BUN (9-20) mg/dL Creatinine (0.66-1.25) mg/dL Estimated GFR ML/MIN Glucose (74-106) mg/dL Calcium (8.4-10.2) mg/dL Total Bilirubin (0.2-1.3) mg/dL AST (17-59) U/L ALT (0-50) U/L Alkaline Phosphatase (38-126) U/L Troponin I < 0.012 < 0.012 < 0.012 (0.000-0.034) ng/mL Serum Total Protein (6.3-8.2) g/dL Albumin (3.5-5.0) g/dL Triglycerides (30-150) mg/dL Cholesterol (50-200) mg/dL LDL Cholesterol (30-100) mg/dL HDL Cholesterol (40-60) mg/dL Heart Disease Risk Ratio 05/21/20 05/21/20 05/21/20 Range/Units 05:55 05:55 05:55 WBC 7.2 (4.0-10.5) K/mm3 RBC 5.48 (4.1-5.6) M/mm3 Hgb 16.1 (12.5-18.0) gm/dl Hct 47.8 (42-50) % MCV 87.2 (78-100) fl MCH 29.4 (26-32) pg MCHC 33.7 (32-36) g/dl RDW 13.4 (11.5-14.0) % Plt Count 176 (150-450) K/mm3 MPV 10.7 (7.5-11.0) fl Sodium 139 (137-145) mmol/L Potassium 4.9 (3.5-5.1) mmol/L Chloride 100 (98-107) mmol/L Carbon Dioxide 30 (22-30) mmol/L Anion Gap 14.2 (5-15) MEQ/L BUN 15 (9-20) mg/dL Creatinine 0.86 (0.66-1.25) mg/dL Estimated GFR > 60.0 ML/MIN Glucose 149 H (74-106) mg/dL Calcium 9.4 (8.4-10.2) mg/dL Total Bilirubin 0.90 (0.2-1.3) mg/dL AST 25 (17-59) U/L ALT 28 (0-50) U/L Alkaline Phosphatase 75 (38-126) U/L Troponin I (0.000-0.034) ng/mL Serum Total Protein 7.4 (6.3-8.2) g/dL Albumin 4.3 (3.5-5.0) g/dL Triglycerides 261 H (30-150) mg/dL Cholesterol 121 (50-200) mg/dL LDL Cholesterol 55 (30-100) mg/dL HDL Cholesterol 36 L (40-60) mg/dL Heart Disease Risk Ratio 3.3 Accuchecks Date 05/21/20 Date 05/21/20 Date 05/21/20 Date 05/21/20 Date 05/20/20 Time 11:30 Time 11:30 Time 07:30 Time 07:30 Time 17:58 Accucheck Value: 149 Accucheck Value: 149 Accucheck Value: 156 Accucheck Value: 132 - Radiology Impressions Radiology Exams & Impressions: Radiology Procedures Category Date Time Status CHEST 2 VIEWS (PA AND LAT) Stat Exams 05/20/20 08:55 Completed ECHO W/2D AND DOPPLER [US] Routine Exams 05/20/20 10:29 Taken - Other Procedures and Tests Respiratory Therapy 05/20/20 22:24 BiPap/CPAP ROUTINE 05/22/20 05:00 EKG ROUTINE 05/23/20 05:00 EKG ROUTINE Assessment/Plan (1) Weakness Current Visit: Yes Status: Resolved Assessment & Plan: During stress test- AR ruled out. He actually did well on the stress test (nuclear images were wnl). Walked today without issues. F/u with Dr. Mendez in 1 week. Code(s): R53.1 - WEAKNESS (2) Vomiting Current Visit: Yes Status: Resolved Qualifiers: Vomiting Intractability: non-intractable Nausea presence: without nausea Code(s): R11.10 - VOMITING, UNSPECIFIED (3) Diarrhea Current Visit: Yes Status: Resolved Qualifiers: Diarrhea type: functional diarrhea Qualified Code(s): K59.1 - Functional diarrhea Code(s): R19.7 - DIARRHEA, UNSPECIFIED Hospital Summary - Hospital Course Hospital Course: is a 70 year old male pt of Dr. Mendez' with DMII, HTN, and h yperlipidemia who was admitted through ER with weakness, vomiting, and diarrhea during and after a stress test. He was on the treadmill, completed about 7 min, then felt very weak and vomited & had diarrhea. He was sent to ER to r/o AR. EKG nonacute and troponins neg x 5. Will be discharged to home. - Vitals & Intake/Output Vital Signs: Vital Signs Temperature 98.6 F 05/21/20 12:00 Pulse Rate 64 05/21/20 12:00 Respiratory Rate 18 05/21/20 12:00 Blood Pressure 143/64 05/21/20 12:00 O2 Sat by Pulse Oximetry 96 05/21/20 12:00 Intake & Output: Intake & Output 05/19/20 05/20/20 05/21/20 05/22/20 11:59 11:59 11:59 11:59 Intake Total 1847 240 Output Total 1725 450 Balance 122 -210 Weight 90.6 kg 90.6 kg - Lab Result Diagrams: 05/21/20 05:55 05/21/20 05:55 Lab Results-Last 24 Hrs: Accuchecks Date 05/21/20 Date 05/21/20 Date 05/21/20 Date 05/21/20 Date 05/20/20 Time 11:30 Time 11:30 Time 07:30 Time 07:30 Time 17:58 Accucheck Value: 149 Accucheck Value: 149 Accucheck Value: 156 Accucheck Value: 132 Lab Results-Last 24 Hours 05/20/20 05/20/20 05/20/20 Range/Units 15:30 18:24 21:13 WBC (4.0-10.5) K/mm3 RBC (4.1-5.6) M/mm3 Hgb (12.5-18.0) gm/dl Hct (42-50) % MCV (78-100) fl MCH (26-32) pg MCHC (32-36) g/dl RDW (11.5-14.0) % Plt Count (150-450) K/mm3 MPV (7.5-11.0) fl Sodium (137-145) mmol/L Potassium (3.5-5.1) mmol/L Chloride (98-107) mmol/L Carbon Dioxide (22-30) mmol/L Anion Gap (5-15) MEQ/L BUN (9-20) mg/dL Creatinine (0.66-1.25) mg/dL Estimated GFR ML/MIN Glucose (74-106) mg/dL Calcium (8.4-10.2) mg/dL Total Bilirubin (0.2-1.3) mg/dL AST (17-59) U/L ALT (0-50) U/L Alkaline Phosphatase (38-126) U/L Troponin I < 0.012 < 0.012 < 0.012 (0.000-0.034) ng/mL Serum Total Protein (6.3-8.2) g/dL Albumin (3.5-5.0) g/dL Triglycerides (30-150) mg/dL Cholesterol (50-200) mg/dL LDL Cholesterol (30-100) mg/dL HDL Cholesterol (40-60) mg/dL Heart Disease Risk Ratio 05/21/20 05/21/20 05/21/20 Range/Units 05:55 05:55 05:55 WBC 7.2 (4.0-10.5) K/mm3 RBC 5.48 (4.1-5.6) M/mm3 Hgb 16.1 (12.5-18.0) gm/dl Hct 47.8 (42-50) % MCV 87.2 (78-100) fl MCH 29.4 (26-32) pg MCHC 33.7 (32-36) g/dl RDW 13.4 (11.5-14.0) % Plt Count 176 (150-450) K/mm3 MPV 10.7 (7.5-11.0) fl Sodium 139 (137-145) mmol/L Potassium 4.9 (3.5-5.1) mmol/L Chloride 100 (98-107) mmol/L Carbon Dioxide 30 (22-30) mmol/L Anion Gap 14.2 (5-15) MEQ/L BUN 15 (9-20) mg/dL Creatinine 0.86 (0.66-1.25) mg/dL Estimated GFR > 60.0 ML/MIN Glucose 149 H (74-106) mg/dL Calcium 9.4 (8.4-10.2) mg/dL Total Bilirubin 0.90 (0.2-1.3) mg/dL AST 25 (17-59) U/L ALT 28 (0-50) U/L Alkaline Phosphatase 75 (38-126) U/L Troponin I (0.000-0.034) ng/mL Serum Total Protein 7.4 (6.3-8.2) g/dL Albumin 4.3 (3.5-5.0) g/dL Triglycerides 261 H (30-150) mg/dL Cholesterol 121 (50-200) mg/dL LDL Cholesterol 55 (30-100) mg/dL HDL Cholesterol 36 L (40-60) mg/dL Heart Disease Risk Ratio 3.3 Micro Results-Entire Visit: Accuchecks Date 05/21/20 Date 05/21/20 Date 05/21/20 Date 05/21/20 Date 05/20/20 Time 11:30 Time 11:30 Time 07:30 Time 07:30 Time 17:58 Accucheck Value: 149 Accucheck Value: 149 Accucheck Value: 156 Accucheck Value: 132 - Radiology Exams Ordered Rad Exams-Entire Visit: Radiology Procedures Category Date Time Status CHEST 2 VIEWS (PA AND LAT) Stat Exams 05/20/20 08:55 Completed ECHO W/2D AND DOPPLER [US] Routine Exams 05/20/20 10:29 Taken - Procedures and Test Procedures and Tests throughout Hospitalization: Therapy Orders & Screens 05/20/20 16:44 EKG ROUTINE Comment: Diagnosis: r/o mi--n/v 05/20/20 22:24 BiPap/CPAP ROUTINE Comment: Diagnosis: r/o mi--n/v 05/21/20 05:00 EKG ROUTINE Comment: Diagnosis: r/o mi--n/v 05/22/20 05:00 EKG ROUTINE Comment: Diagnosis: r/o mi--n/v 05/23/20 05:00 EKG ROUTINE Comment: Diagnosis: r/o mi--n/v - Discharge Disposition: Home, Self-Care Condition: Stable Prescriptions: Continue Metformin HCl 500 mg [Glucophage 500 MG] 500 mg PO BID Insulin NPH Human Isophane [Novolin N] 30 unit SQ BID Carvedilol 3.125 mg [Coreg 3.125 MG] 3.125 mg PO BID Lisinopril/Hydrochlorothiazide [Lisinopril-Hctz 20-12.5 mg Tab] 0.5 tab PO DAILY Atorvastatin Calcium [Lipitor] 40 mg PO HS Instructions: Nausea and Vomiting, Adult (DC) Additional Instructions: Follow up with physicians as directed If you have any further nausea or vomiting, call family physician or come to the ER Follow up with: CAITLIN PEARCE [CONSULTING PHYSICIAN] - 1 Week NIDHI MENDEZ MD [Primary Care Provider] - 1 Week Forms: Discharge Instructions
--- NOTE | 2020-05-24 13:12 | ECHO ---
DATE OF PROCEDURE: 05/20/2020 CLINICAL INFORMATION: Atypical angina. The M-mode 2D, and Doppler echocardiogram including color flow Doppler shows the left ventricle is normal in size at 4.8 cm. There is no thrombus present. The septal wall thickness is increased at 1.7 cm. The left ventricular posterior wall thickness is normal at 1.0 cm. There is normal contractility of the left ventricle. The ejection fraction is calculated to be 71%. The mitral valve E to A inflow velocity ratio is decreased at 0.9 suggestive of possible impaired left ventricular relaxation. The right ventricle is normal. The left atrium is normal at 3.5 cm. The interatrial septum is intact. The right atrium is normal. The right ventricle is grossly normal. The aortic valve opens well. There is no aortic regurgitation. There is mitral valve leaflet thickening without regurgitation. There is mild tricuspid regurgitation. The right ventricular systolic pressure is normal at 20 mm of Mercury. The pulmonic valve is not well visualized. The aortic root is normal at 3.3 cm. There is no pericardial effusion present. IMPRESSION: 1) MODERATE ASYMMETRIC LEFT VENTRICULAR HYPERTROPHY. 2) POSSIBLE IMPAIRED LEFT VENTRICULAR RELAXATION. 3) NORMAL CONTRACTILITY OF THE LEFT VENTRICLE. 4) MILD TRICUSPID REGURGITATION. 5) NORMAL RIGHT VENTRICULAR SYSTOLIC FUNCTION.
== END 2020-05-21 15:40 | disposition home or self-care (01) ==
LOC: ED 08:51 → UNDOADMOB 10:13 → ICU 10:13 → UNDODISOB 05-21 15:40
PROVIDERS: ADMIT Family Medicine; ATTEND Family Medicine
DX: R53.1 Weakness (principal); I10 Essential (primary) hypertension; E11.9 Type 2 diabetes mellitus without complications; R11.10 Vomiting, unspecified; R19.7 Diarrhea, unspecified; R53.83 Other fatigue; R07.9 Chest pain, unspecified; E78.00 Pure hypercholesterolemia, unspecified; Z79.899 Other long term (current) drug therapy
CPT/HCPCS: 36000; 36415; 71046; 78452; 80053; 80061; 82962; 83721; 83880; 84484; 85025; 85027; 93005; 93015; 93041; 93268; 93306; 94760; 94762; 96374; 99285; A9502; G0378; J2405; A9270-GY

== ENCOUNTER 2021-08-07 10:49 | Observation (INO) | payer MEDICARE, OTHER ==
[2021-08-07] MEDS ORDERED: DUONEB 0.5-3 MG/3 ml Neb IH ONE ×3 (11:03→19:10)
[2021-08-07] MEDS ORDERED: BABY ASPIRIN 81 MG CHEW PO ONE (11:04)
--- NOTE | 2021-08-07 11:07 | ERPHSYRPT ---
- History of Present Illness Time Seen by Provider: 08/07/21 10:51 Source: patient Exam Limitations: no limitations Patient Subjective Stated Complaint: SOB "for a while now" but worsening causing difficulty sleeping last couple nights. Triage Nursing Assessment: pt to ED c/o SOB for unknown time, but worse last few nights. pt states "I am gasping for air when I lay down." denies CP or other pain now. denies cardiac hx, reports hx sleep apnea which he wears CPAP for at night. Physician History: 71 years old male with history of hypertension, hyperlipidemia, diabetes mellitus presented in the ER with chief complaint of shortness of breath. Patient report having shortness of breath for a long time but lately getting worse. Initially was getting some relief with activity as his shortness of breath gets worse with lying down and is gasping for air for the last couple of nights and is unable to sleep well. Patient reports a pressure tightness in the center which is more with lying down and sitting up make him feel a little better. Minimal cough and congestion. Denies any lower extremity swellings. Denies fever or chills. Is vaccinated against COVID-19. Denies any sick contact. Timing/Duration: day(s), constant, gradual onset, worse Activities at Onset: activity, rest Severity of Dyspnea-Max: moderate Severity of Dyspnea-Current: moderate Possible Cause: unknown cause Associated Symptoms: chest pain/discomfort, tightness, No leg swelling, No yancy nful breathing, No productive cough Allergies/Adverse Reactions: codeine Allergy (Verified 08/07/21 10:59) Home Medications: Metformin HCl 500 mg [Glucophage 500 MG] 500 mg PO BID 11/09/14 [History] Carvedilol 3.125 mg [Coreg 3.125 MG] 3.125 mg PO BID 09/17/18 [History] Insulin NPH Human Isophane [Novolin N] 30 unit SQ BID 09/17/18 [History] Lisinopril/Hydrochlorothiazide [Lisinopril-Hctz 20-12.5 mg Tab] 0.5 tab PO DAILY 09/17/18 [History] Atorvastatin Calcium [Lipitor] 40 mg PO HS 05/20/20 [History] Hx Tetanus, Diphtheria Vaccination/Date Given: No Hx Influenza Vaccination/Date Given: Yes Hx Pneumococcal Vaccination/Date Given: No Immunizations Up to Date: No Travel Risk - International Travel Have you traveled outside of the country in past 3 weeks: No - Coronavirus Screening Are you exhibiting any of the following symptoms?: Yes Symptoms: Shortness of Breath Close contact with a COVID-19 positive Pt in past 14-21 Days: No - Vaccine Status Have you recieved a Covid-19 vaccination: Yes Electronic Imager: Pfizer - Vaccination Dates Date of 2cond Vaccination (if applicable): january - Review of Systems Constitutional: No Symptoms Eyes: No Symptoms Ears, Nose, & Throat: No Symptoms Respiratory: Cough, Dyspnea Cardiac: No Symptoms Abdominal/Gastrointestinal: No Symptoms Genitourinary Symptoms: No Symptoms Musculoskeletal: No Symptoms Skin: No Symptoms Neurological: No Symptoms Psychological: No Symptoms Endocrine: No Symptoms Hematologic/Lymphatic: No Symptoms Immunological/Allergic: No Symptoms - Past Medical History Pertinent Past Medical History: Yes Neurological History: No Pertinent History ENT History: No Pertinent History Cardiac History: High Cholesterol, Hypertension Respiratory History: Sleep Apnea Endocrine Medical History: Diabetes Type II Musculoskeletal History: No Pertinent History GI Medical History: Gallbladder Disease History: Other Psycho-Social History: No Pertinent History Male Reproductive Disorders: No Pertinent History Other Medical History: kidney stones - Past Surgical History Past Surgical History: Yes Neuro Surgical History: No Pertinent History Cardiac: No Pertinent History Respiratory: No Pertinent History Gastrointestinal: Cholecystectomy Genitourinary: No Pertinent History Musculoskeletal: Orthopedic Surgery Male Surgical History: No Pertinent History Other Surgical History: left rotator cuff - Social History Smoking Status: Never smoker Exposure to second hand smoke: Yes Drug Use: marijuana Patient Lives Alone: No - Nursing Vital Signs Nursing Vital Signs: Initial Vital Signs Temperature 97.7 F 08/07/21 10:49 Pulse Rate 75 08/07/21 10:49 Respiratory Rate 15 08/07/21 10:49 Blood Pressure 160/98 08/07/21 10:49 O2 Sat by Pulse Oximetry 99 08/07/21 10:49 Pain Scale Pain Intensity 0 - Physical Exam General Appearance: no apparent distress, alert Eye Exam: PERRL/EOMI, eyes nml inspection Ears, Nose, Throat Exam: hearing grossly normal, normal ENT inspection Neck Exam: normal inspection, non-tender, supple, full range of motion Respiratory Exam: diminished breath sounds, rhonchi Cardiovascular/Chest Exam: normal heart sounds, regular rate/rhythm Abdominal/Gastrointestinal Exam: soft, normal bowel sounds Extremity Exam: non-tender, normal range of motion, normal capillary refill Neurologic Exam: alert, oriented x 3, cooperative Skin Exam: normal color SpO2 Interpretation: normal SpO2: 100 O2 Delivery: Room Air - Course EKG Interpreted by Me: RATE ([id number]), Sinus Rhythm, NORMAL AXIS, NORMAL INTERVALS, NORMAL QRS Ordered Tests: Active Orders 24 hr Category Date Time Status Art Supervisor STAT Care 08/07/21 11:04 Active EKG-ER Only STAT Care 08/07/21 11:03 Active IV Insertion STAT Care 08/07/21 11:03 Active Oxygen-ED Only Nasal Cannula 2 lpm Care 08/07/21 11:03 Active CHEST 1 VIEW (PORTABLE) Stat Exams 08/07/21 11:04 Taken BLOOD CULTURE Stat Lab 08/07/21 11:45 Received CBC W DIFF Stat Lab 08/07/21 11:27 Completed CMP Stat Lab 08/07/21 11:27 Completed D-DIMER QUANTITATIVE Stat Lab 08/07/21 11:38 Completed Lactic Acid Stat Lab 08/07/21 11:25 Completed MAGNESIUM Stat Lab 08/07/21 11:27 Completed NT PRO BNP Stat Lab 08/07/21 11:27 Completed TROPONIN Q3H Lab 08/07/21 11:27 Completed TROPONIN Q3H Lab 08/07/21 14:34 Completed TROPONIN Q3H Lab 08/07/21 17:15 Ordered TROPONIN Q3H Lab 08/07/21 20:15 Ordered TROPONIN Q3H Lab 08/07/21 23:15 Ordered Respiratory Therapy Assessment DAILY RT 08/07/21 11:21 Active Medication Summary Discontinued Medications Generic Name Dose Route Start Last Admin Trade Name Lorenzoq PRN Reason Stop Dose Admin Albuterol/Ipratropium 3 ml 08/07/21 11:03 08/07/21 11:16 Duoneb 0.5-3 Mg/3 Ml Neb IH 08/07/21 11:04 3 ml STAT ONE Administration Albuterol/Ipratropium Confirm 08/07/21 11:15 Duoneb 0.5-3 Mg/3 Ml Neb Administered 08/07/21 11:16 Dose 3 ml IH .STK-MED ONE Aspirin 324 mg 08/07/21 11:04 08/07/21 11:12 Baby Aspirin 81 Mg Chew PO 08/07/21 11:05 324 mg STAT ONE Administration Lab/Rad Data: Laboratory Result Diagrams 08/07/21 11:27 08/07/21 11:27 Laboratory Results 08/07/21 08/07/21 08/07/21 Range/Units 14:34 11:38 11:27 WBC (4.0-10.5) K/mm3 RBC (4.1-5.6) M/mm3 Hgb (12.5-18.0) gm/dl Hct (42-50) % MCV (78-100) fl MCH (26-32) pg MCHC (32-36) g/dl RDW (11.5-14.0) % Plt Count (150-450) K/mm3 MPV (7.5-11.0) fl Gran % (36.0-66.0) % Eos # (Auto) (0-0.5) Absolute Lymphs (auto) (1.0-4.6) Absolute Monos (auto) (0.0-1.3) Lymphocytes % (24.0-44.0) % Monocytes % (0.0-12.0) % Eosinophils % (0.00-5.0) % Basophils % (0.0-0.4) % Absolute Granulocytes (1.4-6.9) Basophils # (0-0.4) D-Dimer 364 (215-500) ng/mL Sodium (137-145) mmol/L Potassium (3.5-5.1) mmol/L Chloride (98-107) mmol/L Carbon Dioxide (22-30) mmol/L Anion Gap (5-15) MEQ/L BUN (9-20) mg/dL Creatinine (0.66-1.25) mg/dL Estimated GFR ML/MIN Glucose (74-106) mg/dL Lactic Acid (0.4-2.0) Calcium (8.4-10.2) mg/dL Magnesium (1.6-2.3) mg/dL Total Bilirubin (0.2-1.3) mg/dL AST (17-59) U/L ALT (0-50) U/L Alkaline Phosphatase (38-126) U/L Troponin I < 0.012 < 0.012 (0.000-0.034) ng/mL NT-Pro-B Natriuret Pep (0-900) pg/mL Serum Total Protein (6.3-8.2) g/dL Albumin (3.5-5.0) g/dL 08/07/21 08/07/21 08/07/21 Range/Units 11:27 11:27 11:25 WBC 9.5 (4.0-10.5) K/mm3 RBC 5.46 (4.1-5.6) M/mm3 Hgb 16.2 (12.5-18.0) gm/dl Hct 46.8 (42-50) % MCV 85.7 (78-100) fl MCH 29.7 (26-32) pg MCHC 34.6 (32-36) g/dl RDW 12.8 (11.5-14.0) % Plt Count 175 (150-450) K/mm3 MPV 10.9 (7.5-11.0) fl Gran % 73.2 H (36.0-66.0) % Eos # (Auto) 0.39 (0-0.5) Absolute Lymphs (auto) 1.33 (1.0-4.6) Absolute Monos (auto) 0.78 (0.0-1.3) Lymphocytes % 14.1 L (24.0-44.0) % Monocytes % 8.2 (0.0-12.0) % Eosinophils % 4.1 (0.00-5.0) % Basophils % 0.4 (0.0-0.4) % Absolute Granulocytes 6.92 H (1.4-6.9) Basophils # 0.04 (0-0.4) D-Dimer (215-500) ng/mL Sodium 137 (137-145) mmol/L Potassium 3.9 (3.5-5.1) mmol/L Chloride 101 (98-107) mmol/L Carbon Dioxide 24 (22-30) mmol/L Anion Gap 15.7 H (5-15) MEQ/L BUN 15 (9-20) mg/dL Creatinine 0.72 (0.66-1.25) mg/dL Estimated GFR > 60.0 ML/MIN Glucose 186 H (74-106) mg/dL Lactic Acid 1.5 (0.4-2.0) Calcium 9.8 (8.4-10.2) mg/dL Magnesium 2.0 (1.6-2.3) mg/dL Total Bilirubin 1.00 (0.2-1.3) mg/dL AST 26 (17-59) U/L ALT 26 (0-50) U/L Alkaline Phosphatase 95 (38-126) U/L Troponin I (0.000-0.034) ng/mL NT-Pro-B Natriuret Pep 110 (0-900) pg/mL Serum Total Protein 7.9 (6.3-8.2) g/dL Albumin 4.7 (3.5-5.0) g/dL - Progress Progress: improved Air Movement: good Progress Note: 08/07/21 15:51 71 years old is evaluated for worsening dyspnea with some chest tightness pressure. Is given aspirin and breathing treatment, on reevaluation he is feeling much better. EKG did not show any acute ST elevation and negative initial troponin and D-dimer. Chest x-ray did not show any obvious focal infiltrative process reviewed by me, official report is pending. Patient has multiple risk factors for CAD, discussed with and with his worsening dyspnea on exertion could be unstable angina and needs further evaluation. Patient is accepted for admission. Plan discussed with patient and family who understand and agree with it. Discussed with .: [place] Will see patient in: hospital (observation) Counseled pt/family regarding: lab results, diagnosis, rad results - Departure Departure Disposition: Observation Clinical Impression: Dyspnea on exertion Condition: Stable Critical Care Time: No Referrals: NIDHI BAIG MD [Primary Care Provider] -
[2021-08-07 11:51] LABS: Absolute Neutrophil Ct (ANC) 6.92 (1.4-6.9); BASOPHIL % 0.4 % (0.0-0.4); Basophil (Absolute #) 0.04 (0-0.4); Eosinophil % 4.1 % (0.00-5.0); Eosinophil (Absolute #) 0.39 (0-0.5); Hematocrit 46.8 % (42-50); Hemoglobin 16.2 gm/dl (12.5-18.0); Lymphocyte (Absolute #) 1.33 (1.0-4.6); Lymphocytes % 14.1 % (24.0-44.0); Mean Cell Volume 85.7 fl (78-100); Mean Corpuscular Hemoglobin 29.7 pg (26-32); Mean Corpuscular Hgb Concent. 34.6 g/dl (32-36); Mean Platelet Volume 10.9 fl (7.5-11.0); Monocyte (Absolute #) 0.78 (0.0-1.3); Monocytes % 8.2 % (0.0-12.0); Neutrophil % 73.2 % (36.0-66.0); Platelet Count 175 K/mm3 (150-450); Red Blood Count 5.46 M/mm3 (4.1-5.6); Red Cell Distribution Width 12.8 % (11.5-14.0); White Blood Count 9.5 K/mm3 (4.0-10.5)
[2021-08-07 12:10] LABS: ALBUMIN 4.7 g/dL (3.5-5.0); ALKALINE PHOSPHATASE 95 U/L (38-126); ANION GAP 15.7 MEQ/L (5-15); BLOOD UREA NITROGEN 15 mg/dL (9-20); CHLORIDE 101 mmol/L (98-107); Calcium 9.8 mg/dL (8.4-10.2); Carbon Dioxide 24 mmol/L (22-30); Creatinine 1 0.72 mg/dL (0.66-1.25); EST GLOMERULAR FILTRATION RATE > 60.0 ML/MIN; Glucose 186 mg/dL (74-106); NT PRO BNP 110 pg/mL (0-900); Potassium 3.9 mmol/L (3.5-5.1); SGOT/AST 26 U/L (17-59); SGPT/ALT 26 U/L (0-50); SODIUM 137 mmol/L (137-145); Total Protein 7.9 g/dL (6.3-8.2)
--- NOTE | 2021-08-07 18:23 | XRAY ---
Indication: Short of breath 6 weeks. Comparison: May 20, 2020. Portable chest remains hyperinflated again with minimal lingula fibrosis/scarring. No focal infiltrate, consolidation, or large effusion. Heart not enlarged. Descending aorta remains mildly tortuous. Bony thorax intact again with mild degenerative changes and left shoulder surgery. Impression: Continued nonacute hyperinflated chest with chronic features.
[2021-08-07] MEDS ORDERED: MORPHINE SULFATE 2 MG INJ IV PRN (18:29)
[2021-08-07] MEDS ORDERED: Zofran 4 MG/2 ML VIAL IV PRN (18:29)
[2021-08-07] MEDS ORDERED: REMDESIVIR 200 MG in Sodium Chloride 0.9% 250 ML 250 ML IV ONE (18:44)
[2021-08-07] MEDS: DUONEB 0.5-3 MG/3 ml Neb IH SCH (19:12)
[2021-08-07] MEDS ORDERED: OCEAN Nasal Spray NS PRN (20:40)
[2021-08-07] MEDS: Novolin N SQ SCH (21:14)
[2021-08-07] MEDS: TYLENOL 325 MG PO PRN (21:16)
[2021-08-07] MEDS: Coreg 3.125 MG PO SCH (21:17)
[2021-08-07] MEDS: Glucophage 500 MG PO SCH (21:23)
[2021-08-07] MEDS: ZOCOR 20MG PO SCH (21:26)
[2021-08-07] MEDS: Flonase NASAL NS SCH (23:33)
[2021-08-08] MEDS ORDERED: DUONEB 0.5-3 MG/3 ml Neb IH ONE (04:41)
[2021-08-08] MEDS: DUONEB 0.5-3 MG/3 ml Neb IH SCH (04:42)
[2021-08-08] MEDS: DUONEB 0.5-3 MG/3 ml Neb IH PRN ×2 (04:44→14:58)
[2021-08-08 05:38] LABS: Absolute Neutrophil Ct (ANC) 7.98 (1.4-6.9); BASOPHIL % 0.4 % (0.0-0.4); Basophil (Absolute #) 0.04 (0-0.4); Eosinophil (Absolute #) 0.56 (0-0.5); Hemoglobin 15.6 gm/dl (12.5-18.0); Lymphocytes % 13.3 % (24.0-44.0); Mean Corpuscular Hemoglobin 29.2 pg (26-32); Mean Corpuscular Hgb Concent. 33.9 g/dl (32-36); Mean Platelet Volume 10.8 fl (7.5-11.0); Monocyte (Absolute #) 1.16 (0.0-1.3); Monocytes % 10.3 % (0.0-12.0); Platelet Count 190 K/mm3 (150-450); Red Blood Count 5.35 M/mm3 (4.1-5.6); Red Cell Distribution Width 12.9 % (11.5-14.0); White Blood Count 11.2 K/mm3 (4.0-10.5)
[2021-08-08 05:58] LABS: ALBUMIN 4.7 g/dL (3.5-5.0); ALKALINE PHOSPHATASE 87 U/L (38-126); ANION GAP 15.8 MEQ/L (5-15); BLOOD UREA NITROGEN 14 mg/dL (9-20); CHLORIDE 100 mmol/L (98-107); Calcium 9.9 mg/dL (8.4-10.2); Carbon Dioxide 23 mmol/L (22-30); EST GLOMERULAR FILTRATION RATE > 60.0 ML/MIN; Glucose 149 mg/dL (74-106); Potassium 3.8 mmol/L (3.5-5.1); SGOT/AST 24 U/L (17-59); SGPT/ALT 25 U/L (0-50); SODIUM 136 mmol/L (137-145); Total Protein 7.8 g/dL (6.3-8.2)
[2021-08-08] MEDS: Glucophage 500 MG PO SCH ×2 (08:51→18:36)
[2021-08-08] MEDS: Zestril 10 MG PO SCH (08:51)
[2021-08-08] MEDS: Coreg 3.125 MG PO SCH ×2 (08:51→22:44)
[2021-08-08] MEDS: hydroDIURIL 25 MG PO SCH (08:51)
[2021-08-08] MEDS: Novolin N SQ SCH ×2 (08:52→22:44)
[2021-08-08] MEDS: PROTONIX 40 MG IV IV SCH (08:52)
--- NOTE | 2021-08-08 09:11 | PCM.HP ---
History of Present Illness - Chief Complaint Chief Complaint: sob History of Present Illness: is a 71 year old male pt of Dr. Mendez with HTN, hyperlipidemia, and DM who was admitted through ER with chest pressure and shortness of breath. He is a vague historian. Apparently he's had some shortness of breath for "a while," but has had difficulty sleeping this past week due to PND. He also c/o chest pressure/tightness which is from -09/10, was intermittent but for the past week has been fairly constant. He wears a cpap but has been unable to for the past week; it's unclear why. He does c/o sinus congestion but then at times seems to refute that. Has coughed up some yellow sputum. No fever. His pressure is non-radiating, is accompanied by diaphoresis and nausea. This morning he is feeling "terrible" because he couldn't sleep - any time he laid down he was short of breath. He has had a stress test and echocardiogram with Dr. Diallo just over a year ago, which he says were "fine." - Review of Systems Respiratory: Cough, Short Of Breath Cardiac: Chest Pain, Palpitations (tachycardia), Orthopnea, No Edema Abdominal/Gastrointestinal: Nausea, Other (soft stools, chronic) All Other Systems: Reviewed and Negative Medications & Allergies Home Medications: Home Medication List Metformin HCl 500 mg [Glucophage 500 MG] 500 mg PO BID 11/09/14 [History Confirmed 08/07/21] Carvedilol 3.125 mg [Coreg 3.125 MG] 3.125 mg PO BID 09/17/18 [History Confirmed 08/07/21] Insulin NPH Human Isophane [Novolin N] 30 unit SQ BID 09/17/18 [History Confirmed 08/07/21] Lisinopril/Hydrochlorothiazide [Lisinopril-Hctz 20-12.5 mg Tab] 0.5 tab PO DAILY 09/17/18 [History Confirmed 08/07/21] Atorvastatin Calcium [Lipitor] 40 mg PO DAILY 05/20/20 [History Confirmed 08/07/21] Allergies/Adverse Reactions: Allergies Allergy/AdvReac Type Severity Reaction Status Date / Time codeine Allergy Verified 08/07/21 10:59 - Past Medical History Past Medical History: Yes Neurological History: No Pertinent History ENT History: No Pertinent History Cardiac History: High Cholesterol, Hypertension Respiratory History: Bronchitis, Sleep Apnea Endocrine Medical History: Diabetes Type II Musculoskelatal History: No Pertinent History GI Medical History: Gallbladder Disease History: Other Pyscho-Social History: No Pertinent History Male Reproductive Disorders: No Pertinent History Comment: kidney stones - Past Surgical History Past Surgical History: Yes Neuro Surgical History: No Pertinent History Cardiac History: No Pertinent History Respiratory Surgery: No Pertinent History GI Surgical History: Cholecystectomy Genitourinary Surgical Hx: No Pertinent History Musculskeletal Surgical Hx: Orthopedic Surgery Male Surgical History: No Pertinent History Other Surgical History: left rotator cuff - Social History Smoking Status: Never smoker Exposure to second hand smoke: Yes Alcohol: Rarely Drug Use: marijuana - Physical Exam Vital Signs: Vital Signs - 24 hr Temp Pulse Resp BP Pulse Ox 08/08/21 08:00 97.6 F 80 22 133/66 98 08/08/21 04:45 64 18 98 08/08/21 04:00 97.4 F 62 17 140/74 98 08/07/21 23:40 97.2 F 71 18 130/57 97 08/07/21 19:54 98.4 F 62 18 171/79 98 08/07/21 19:45 98.4 F 62 18 171/79 98 08/07/21 19:17 67 18 95 08/07/21 18:40 98.4 F 62 18 171/79 98 08/07/21 17:05 63 19 121/74 97 08/07/21 16:21 68 18 146/99 98 08/07/21 15:59 100 08/07/21 12:49 70 25 H 142/67 95 08/07/21 11:21 74 14 98 08/07/21 10:49 97.7 F 75 15 160/98 100 General Appearance: no apparent distress, alert Neurologic Exam: oriented x 3, cooperative Eye Exam: eyes nml inspection Ears, Nose, Throat Exam: moist mucous membranes Neck Exam: normal inspection, non-tender, No lymphadenopathy Respiratory Exam: normal breath sounds, lungs clear, No crackles/rales, No rhonchi, No wheezing Cardiovascular Exam: regular rate/rhythm, normal heart sounds, No murmur Gastrointestinal/Abdomen Exam: soft, normal bowel sounds, No tenderness, No mass, No guarding, No rebound Extremity Exam: normal inspection, No pedal edema, No swelling Skin Exam: normal color, warm, dry, No rash Results - Labs Lab/Micro Results: Lab Results-Last 24 Hours 08/07/21 08/07/21 08/07/21 Range/Units 11:25 11:27 11:27 WBC 9.5 (4.0-10.5) K/mm3 RBC 5.46 (4.1-5.6) M/mm3 Hgb 16.2 (12.5-18.0) gm/dl Hct 46.8 (42-50) % MCV 85.7 (78-100) fl MCH 29.7 (26-32) pg MCHC 34.6 (32-36) g/dl RDW 12.8 (11.5-14.0) % Plt Count 175 (150-450) K/mm3 MPV 10.9 (7.5-11.0) fl Gran % 73.2 H (36.0-66.0) % Eos # (Auto) 0.39 (0-0.5) Absolute Lymphs (auto) 1.33 (1.0-4.6) Absolute Monos (auto) 0.78 (0.0-1.3) Lymphocytes % 14.1 L (24.0-44.0) % Monocytes % 8.2 (0.0-12.0) % Eosinophils % 4.1 (0.00-5.0) % Basophils % 0.4 (0.0-0.4) % Absolute Granulocytes 6.92 H (1.4-6.9) Basophils # 0.04 (0-0.4) D-Dimer (215-500) ng/mL Sodium 137 (137-145) mmol/L Potassium 3.9 (3.5-5.1) mmol/L Chloride 101 (98-107) mmol/L Carbon Dioxide 24 (22-30) mmol/L Anion Gap 15.7 H (5-15) MEQ/L BUN 15 (9-20) mg/dL Creatinine 0.72 (0.66-1.25) mg/dL Estimated GFR > 60.0 ML/MIN Glucose 186 H (74-106) mg/dL POC Glucometer (74 to 106) mg/dL Lactic Acid 1.5 (0.4-2.0) Calcium 9.8 (8.4-10.2) mg/dL Magnesium 2.0 (1.6-2.3) mg/dL Total Bilirubin 1.00 (0.2-1.3) mg/dL AST 26 (17-59) U/L ALT 26 (0-50) U/L Alkaline Phosphatase 95 (38-126) U/L Troponin I (0.000-0.034) ng/mL NT-Pro-B Natriuret Pep 110 (0-900) pg/mL Serum Total Protein 7.9 (6.3-8.2) g/dL Albumin 4.7 (3.5-5.0) g/dL SARS-CoV-2 (PCR) (NEGATIVE) 08/07/21 08/07/21 08/07/21 Range/Units 11:27 11:38 14:34 WBC (4.0-10.5) K/mm3 RBC (4.1-5.6) M/mm3 Hgb (12.5-18.0) gm/dl Hct (42-50) % MCV (78-100) fl MCH (26-32) pg MCHC (32-36) g/dl RDW (11.5-14.0) % Plt Count (150-450) K/mm3 MPV (7.5-11.0) fl Gran % (36.0-66.0) % Eos # (Auto) (0-0.5) Absolute Lymphs (auto) (1.0-4.6) Absolute Monos (auto) (0.0-1.3) Lymphocytes % (24.0-44.0) % Monocytes % (0.0-12.0) % Eosinophils % (0.00-5.0) % Basophils % (0.0-0.4) % Absolute Granulocytes (1.4-6.9) Basophils # (0-0.4) D-Dimer 364 (215-500) ng/mL Sodium (137-145) mmol/L Potassium (3.5-5.1) mmol/L Chloride (98-107) mmol/L Carbon Dioxide (22-30) mmol/L Anion Gap (5-15) MEQ/L BUN (9-20) mg/dL Creatinine (0.66-1.25) mg/dL Estimated GFR ML/MIN Glucose (74-106) mg/dL POC Glucometer (74 to 106) mg/dL Lactic Acid (0.4-2.0) Calcium (8.4-10.2) mg/dL Magnesium (1.6-2.3) mg/dL Total Bilirubin (0.2-1.3) mg/dL AST (17-59) U/L ALT (0-50) U/L Alkaline Phosphatase (38-126) U/L Troponin I < 0.012 < 0.012 (0.000-0.034) ng/mL NT-Pro-B Natriuret Pep (0-900) pg/mL Serum Total Protein (6.3-8.2) g/dL Albumin (3.5-5.0) g/dL SARS-CoV-2 (PCR) (NEGATIVE) 08/07/21 08/07/21 08/07/21 Range/Units 16:43 17:09 20:00 WBC (4.0-10.5) K/mm3 RBC (4.1-5.6) M/mm3 Hgb (12.5-18.0) gm/dl Hct (42-50) % MCV (78-100) fl MCH (26-32) pg MCHC (32-36) g/dl RDW (11.5-14.0) % Plt Count (150-450) K/mm3 MPV (7.5-11.0) fl Gran % (36.0-66.0) % Eos # (Auto) (0-0.5) Absolute Lymphs (auto) (1.0-4.6) Absolute Monos (auto) (0.0-1.3) Lymphocytes % (24.0-44.0) % Monocytes % (0.0-12.0) % Eosinophils % (0.00-5.0) % Basophils % (0.0-0.4) % Absolute Granulocytes (1.4-6.9) Basophils # (0-0.4) D-Dimer (215-500) ng/mL Sodium (137-145) mmol/L Potassium (3.5-5.1) mmol/L Chloride (98-107) mmol/L Carbon Dioxide (22-30) mmol/L Anion Gap (5-15) MEQ/L BUN (9-20) mg/dL Creatinine (0.66-1.25) mg/dL Estimated GFR ML/MIN Glucose (74-106) mg/dL POC Glucometer (74 to 106) mg/dL Lactic Acid (0.4-2.0) Calcium (8.4-10.2) mg/dL Magnesium (1.6-2.3) mg/dL Total Bilirubin (0.2-1.3) mg/dL AST (17-59) U/L ALT (0-50) U/L Alkaline Phosphatase (38-126) U/L Troponin I < 0.012 < 0.012 (0.000-0.034) ng/mL NT-Pro-B Natriuret Pep (0-900) pg/mL Serum Total Protein (6.3-8.2) g/dL Albumin (3.5-5.0) g/dL SARS-CoV-2 (PCR) NEGATIVE (NEGATIVE) 08/07/21 08/07/21 08/08/21 Range/Units 20:23 23:16 04:41 WBC 11.2 H (4.0-10.5) K/mm3 RBC 5.35 (4.1-5.6) M/mm3 Hgb 15.6 (12.5-18.0) gm/dl Hct 46.0 (42-50) % MCV 86.0 (78-100) fl MCH 29.2 (26-32) pg MCHC 33.9 (32-36) g/dl RDW 12.9 (11.5-14.0) % Plt Count 190 (150-450) K/mm3 MPV 10.8 (7.5-11.0) fl Gran % 71.0 H (36.0-66.0) % Eos # (Auto) 0.56 H (0-0.5) Absolute Lymphs (auto) 1.50 (1.0-4.6) Absolute Monos (auto) 1.16 (0.0-1.3) Lymphocytes % 13.3 L (24.0-44.0) % Monocytes % 10.3 (0.0-12.0) % Eosinophils % 5.0 (0.00-5.0) % Basophils % 0.4 (0.0-0.4) % Absolute Granulocytes 7.98 H (1.4-6.9) Basophils # 0.04 (0-0.4) D-Dimer (215-500) ng/mL Sodium (137-145) mmol/L Potassium (3.5-5.1) mmol/L Chloride (98-107) mmol/L Carbon Dioxide (22-30) mmol/L Anion Gap (5-15) MEQ/L BUN (9-20) mg/dL Creatinine (0.66-1.25) mg/dL Estimated GFR ML/MIN Glucose (74-106) mg/dL POC Glucometer 250 H (74 to 106) mg/dL Lactic Acid (0.4-2.0) Calcium (8.4-10.2) mg/dL Magnesium (1.6-2.3) mg/dL Total Bilirubin (0.2-1.3) mg/dL AST (17-59) U/L ALT (0-50) U/L Alkaline Phosphatase (38-126) U/L Troponin I < 0.012 (0.000-0.034) ng/mL NT-Pro-B Natriuret Pep (0-900) pg/mL Serum Total Protein (6.3-8.2) g/dL Albumin (3.5-5.0) g/dL SARS-CoV-2 (PCR) (NEGATIVE) 08/08/21 08/08/21 Range/Units 04:41 08:12 WBC (4.0-10.5) K/mm3 RBC (4.1-5.6) M/mm3 Hgb (12.5-18.0) gm/dl Hct (42-50) % MCV (78-100) fl MCH (26-32) pg MCHC (32-36) g/dl RDW (11.5-14.0) % Plt Count (150-450) K/mm3 MPV (7.5-11.0) fl Gran % (36.0-66.0) % Eos # (Auto) (0-0.5) Absolute Lymphs (auto) (1.0-4.6) Absolute Monos (auto) (0.0-1.3) Lymphocytes % (24.0-44.0) % Monocytes % (0.0-12.0) % Eosinophils % (0.00-5.0) % Basophils % (0.0-0.4) % Absolute Granulocytes (1.4-6.9) Basophils # (0-0.4) D-Dimer (215-500) ng/mL Sodium 136 L (137-145) mmol/L Potassium 3.8 (3.5-5.1) mmol/L Chloride 100 (98-107) mmol/L Carbon Dioxide 23 (22-30) mmol/L Anion Gap 15.8 H (5-15) MEQ/L BUN 14 (9-20) mg/dL Creatinine 0.70 (0.66-1.25) mg/dL Estimated GFR > 60.0 ML/MIN Glucose 149 H (74-106) mg/dL POC Glucometer 198 H (74 to 106) mg/dL Lactic Acid (0.4-2.0) Calcium 9.9 (8.4-10.2) mg/dL Magnesium (1.6-2.3) mg/dL Total Bilirubin 1.20 (0.2-1.3) mg/dL AST 24 (17-59) U/L ALT 25 (0-50) U/L Alkaline Phosphatase 87 (38-126) U/L Troponin I (0.000-0.034) ng/mL NT-Pro-B Natriuret Pep (0-900) pg/mL Serum Total Protein 7.8 (6.3-8.2) g/dL Albumin 4.7 (3.5-5.0) g/dL SARS-CoV-2 (PCR) (NEGATIVE) Accuchecks Date 08/08/21 Date 08/07/21 Time 08:00 Time 22:00 - Radiology Impressions Radiology Exams & Impressions: Radiology Procedures Category Date Time Status CHEST 1 VIEW (PORTABLE) Stat Exams 08/07/21 11:04 Completed CHEST WITH CONTRAST [CT] Routine Exams 08/08/21 09:03 Ordered ECHO W/2D AND DOPPLER [US] Routine Exams 08/08/21 Ordered - Other Procedures and Tests Respiratory Therapy 08/07/21 11:21 Respiratory Therapy Assessment DAILY Assessment/Plan (1) SOB (shortness of breath) Current Visit: Yes Status: Acute Assessment & Plan: With DOMÍNGUEZ and PND. Some subjective SOB at rest as well. Unsure if cardiac or pulmonary etiology. He is certainly at risk for CAD, already having a CAD equivalent in his DM. Troponins have been neg x 5. His d-dimer was nl. Will get echo cardiogram and CT chest, which will inform if/who we need to consult. Code(s): R06.02 - SHORTNESS OF BREATH (2) Chest pain in adult Current Visit: No Status: Acute Code(s): R07.9 - CHEST PAIN, UNSPECIFIED
[2021-08-08] MEDS: Mucinex 600MG ER Tabs PO SCH ×2 (09:47→22:44)
[2021-08-08] MEDS: Acidophilus TABLET PO SCH ×3 (09:47→22:44)
[2021-08-08] MEDS ORDERED: [UNRECOGNIZED DRUG - OTHER] PO SCH (10:00)
[2021-08-08] MEDS ORDERED: HYDROCHLOROTHIAZIDE PO SCH (10:00)
[2021-08-08] MEDS ORDERED: LISINOPRIL PO SCH (10:00)
[2021-08-08] MEDS: TYLENOL 325 MG PO PRN ×2 (10:22→18:36)
[2021-08-08] MEDS: Augmentin 875-125 Tablet PO SCH ×2 (10:22→22:44)
--- NOTE | 2021-08-08 12:26 | XRAY ---
Indication: Dyspnea on exertion. Nausea and vomiting. Multiple contiguous axial images obtained through the chest using 80 cc Isovue 370 contrast. Comparison: None Lungs demonstrate mid to lower lung subsegmental atelectasis/scarring bilaterally and tiny left lower lobe calcified granuloma. No suspicious pulmonary mass, infiltrate, consolidation, or effusion. Heart is not enlarged. Aorta minimally arteriosclerotic without aneurysm/dissection. Tiny left hilar calcified nodes. No pathologic mediastinal/hilar lymphadenopathy. Bony thorax intact with minimal degenerative changes throughout the spine. Limited upper abdomen demonstrates 3 cm right renal cyst and cholecystectomy clips. Impression: 1. Scattered atelectasis/scarring, right renal cyst, and old granulomatous disease. 2. Remaining CT chest with contrast exam is negative.
[2021-08-08] MEDS ORDERED: PHENERGAN 25 MG PO PRN (14:02)
[2021-08-08] MEDS: ZOCOR 20MG PO SCH (22:44)
[2021-08-09] MEDS ORDERED: Ambien 5 MG Tablet PO PRN (08:26)
--- NOTE | 2021-08-09 08:29 | PCM.NOTE ---
Date and Time: 08/09/21826 Subjective Assessment: patient still feels tight in his chest, has a productive cough. notes improvement with neb treatments when he has received them Objective Exam General Appearance: no apparent distress Neurologic Exam: alert, oriented x 3 Skin Exam: other (indurated, firm abscess left upper chest wall. area of redness improving per circles on skin) Respiratory Exam: prolonged expirations, rhonchi, wheezing Cardiovascular Exam: regular rate/rhythm, normal heart sounds Gastrointestinal/Abdomen Exam: soft, No tenderness, No mass Extremity Exam: normal inspection, normal range of motion OBJECTIVE DATA Vital Signs: Vital Signs - 24 hr Temp Pulse Resp BP Pulse Ox 08/09/21 04:00 98.7 F 74 16 151/71 94 L 08/09/21 00:00 98.2 F 82 22 130/79 95 08/08/21 20:00 98.0 F 75 20 149/75 96 08/08/21 19:47 85 20 95 08/08/21 16:00 98.2 F 73 20 166/77 97 08/08/21 14:58 72 20 97 08/08/21 12:00 97.6 F 68 18 145/67 98 Pain Assessment - Last Documented Pain Intensity 0 Pain Scale Used 0-10 Pain Scale Intake and Output: Intake & Output 08/06/21 08/07/21 08/08/21 08/09/21 11:59 11:59 11:59 11:59 Intake Total 830 2030 Output Total 125 Balance 830 1905 Weight 91.9 kg 87.6 kg 86.8 kg Lab Results: Lab Results-Last 24 Hours 08/08/21 08/08/21 08/08/21 Range/Units 12:32 16:47 21:08 POC Glucometer 120 H 106 145 H (74 to 106) mg/dL 08/09/21 Range/Units 08:07 POC Glucometer 120 H (74 to 106) mg/dL Radiology Exams: Radiology Procedures Category Date Time Status CHEST 1 VIEW (PORTABLE) Stat Exams 08/07/21 11:04 Completed CHEST WITH CONTRAST [CT] Routine Exams 08/08/21 09:03 Completed ECHO W/2D AND DOPPLER [US] Routine Exams 08/08/21 10:28 Taken Assessment/Plan (1) COPD with acute exacerbation Current Visit: Yes Status: Acute Assessment & Plan: change from augmentin to po levaquin to broaden coverage, add IV solu medrol and schedule nebs every 6 hours based on exam Code(s): J44.1 - CHRONIC OBSTRUCTIVE PULMONARY DISEASE W (ACUTE) EXACERBATION (2) Abscess of chest wall Current Visit: Yes Status: Acute Assessment & Plan: levaquin, warm compress Code(s): L02.213 - CUTANEOUS ABSCESS OF CHEST WALL
[2021-08-09] MEDS: Novolin N SQ SCH ×2 (09:19→21:22)
[2021-08-09] MEDS: Mucinex 600MG ER Tabs PO SCH ×2 (09:20→21:21)
[2021-08-09] MEDS: ENOXAPARIN SODIUM SQ SCH (09:20)
[2021-08-09] MEDS: Levofloxacin 250MG Tablet PO SCH (09:20)
[2021-08-09] MEDS: Acidophilus TABLET PO SCH ×3 (09:20→21:21)
[2021-08-09] MEDS: PROTONIX 40 MG IV IV SCH (09:20)
[2021-08-09] MEDS: Glucophage 500 MG PO SCH ×2 (09:20→17:54)
[2021-08-09] MEDS: Levofloxacin 500 MG Tablet PO SCH (09:20)
[2021-08-09] MEDS: hydroDIURIL 25 MG PO SCH (09:22)
[2021-08-09] MEDS: Zestril 10 MG PO SCH (09:22)
[2021-08-09] MEDS: Flonase NASAL NS SCH (09:23)
[2021-08-09] MEDS: TYLENOL 325 MG PO PRN (09:23)
[2021-08-09] MEDS: Coreg 3.125 MG PO SCH ×2 (09:23→21:21)
[2021-08-09] MEDS: HUMALOG SQ PRN ×3 (13:02→21:22)
[2021-08-09] MEDS ORDERED: solu-MEDROL 40 MG IV SCH (14:00)
[2021-08-09] MEDS: solu-MEDROL 80 MG, Sterile H2O 10 ml 2 ML IV SCH ×4 (14:14→21:21)
[2021-08-09] MEDS: DUONEB 0.5-3 MG/3 ml Neb IH SCH (21:15)
[2021-08-09] MEDS: ZOCOR 20MG PO SCH (21:21)
[2021-08-10] MEDS: DUONEB 0.5-3 MG/3 ml Neb IH SCH ×3 (00:35→08:16)
[2021-08-10 04:47] LABS: Absolute Neutrophil Ct (ANC) 7.67 (1.4-6.9); BASOPHIL % 0.2 % (0.0-0.4); Basophil (Absolute #) 0.02 (0-0.4); Eosinophil % 0.1 % (0.00-5.0); Eosinophil (Absolute #) 0.01 (0-0.5); Hematocrit 48.2 % (42-50); Hemoglobin 16.5 gm/dl (12.5-18.0); Lymphocyte (Absolute #) 0.84 (1.0-4.6); Lymphocytes % 9.5 % (24.0-44.0); Mean Cell Volume 85.6 fl (78-100); Mean Corpuscular Hemoglobin 29.3 pg (26-32); Mean Corpuscular Hgb Concent. 34.2 g/dl (32-36); Mean Platelet Volume 10.4 fl (7.5-11.0); Monocyte (Absolute #) 0.28 (0.0-1.3); Monocytes % 3.2 % (0.0-12.0); Platelet Count 186 K/mm3 (150-450); Red Blood Count 5.63 M/mm3 (4.1-5.6); Red Cell Distribution Width 12.8 % (11.5-14.0); White Blood Count 8.8 K/mm3 (4.0-10.5)
[2021-08-10 04:59] LABS: ALBUMIN 4.6 g/dL (3.5-5.0); ALKALINE PHOSPHATASE 83 U/L (38-126); ANION GAP 18.3 MEQ/L (5-15); BLOOD UREA NITROGEN 22 mg/dL (9-20); CHLORIDE 101 mmol/L (98-107); Calcium 10.1 mg/dL (8.4-10.2); Carbon Dioxide 22 mmol/L (22-30); Creatinine 1 0.85 mg/dL (0.66-1.25); EST GLOMERULAR FILTRATION RATE > 60.0 ML/MIN; Glucose 179 mg/dL (74-106); Potassium 4.4 mmol/L (3.5-5.1); SGOT/AST 23 U/L (17-59); SGPT/ALT 21 U/L (0-50); SODIUM 137 mmol/L (137-145); Total Protein 7.8 g/dL (6.3-8.2)
[2021-08-10] MEDS: solu-MEDROL 80 MG, Sterile H2O 10 ml 2 ML IV SCH ×2 (06:18)
--- NOTE | 2021-08-10 07:52 | CONS ---
CONSULT DATE: 08/09/2021 REASON FOR CONSULT: Evaluation of shortness of breath. HISTORY: Carlos Banegas is a 71 year-old male with history of obstructive sleep apnea, on CPAP therapy at home, who has been admitted with symptoms of cough, shortness of breath and wheezing. He was noted to have acute bronchitis symptoms and is currently being treated for the same with significant clinical improvement in the past 48 hours. The patient had a CT scan of chest performed which was fairly unremarkable and I personally agree with the findings. At the time of my evaluation today he is sitting in a chair and voices no acute complaints. PAST MEDICAL HISTORY: Positive for history of hypertension, dyslipidemia, diabetes mellitus and obstructive sleep apnea. The patient has a CPAP which is currently on a recall. PAST SURGICAL HISTORY: No recent surgery. PERSONAL AND SOCIAL HISTORY: He is a nonsmoker. MEDICATIONS: Medications reviewed. ALLERGIES: CODEINE. PHYSICAL EXAMINATION: This is an elderly man who appears fairly comfortable. VITAL SIGNS: Temperature 97.6F, heart rate 80, blood pressure 133/66 mmHg and saturating 98%. HEENT: Normocephalic. Oral exam is limited. CVS: First and second heart sounds are normal, regular, rhythmic. RESPIRATORY: Shows diminished breath sounds, occasional rhonchi are heard. ABDOMEN: Soft. EXTREMITIES: No edema is noted. LABORATORY DATA AND TESTS: Labs and x-rays reviewed. ASSESSMENT: This is a 71 year old male admitted with: 1) Acute bronchitis which has significantly improved with current therapy. 2) Underlying obstructive sleep apnea. 3) Comorbidities listed above. RECOMMENDATIONS: 1) The patient is doing well. 2) I have advised him regarding the [employer] recall on the CPAP machine. It is probably easier to get it replaced with a new machine given it is almost five years old, expect replacement through [employer]. Nevertheless, I would be happy to help him regarding this matter. I have advised him to follow up with me in two weeks upon discharge from the hospital. Thank you for allowing me to participate in the care of Carlos Banegas.
[2021-08-10 08:03] VITALS: BP 175/89; O2SAT 96
[2021-08-10 08:19] VITALS: PULSE 91
--- NOTE | 2021-08-10 08:32 | PCM.DS ---
Discharge Summary Date of Admission: 08/07/21 18:27 Admitting Physician: VU BATES Primary Care Provider: NIDHI BAIG ARTURO Allergies Allergies codeine Allergy (Verified 08/07/21 10:59) Hospital Summary - Hospital Course Hospital Course: patient admitted with cough, productive of sputum and shortness of breath. improved with abx, steroids and nebs. he is on room air and doing much better on discharge. - Vitals & Intake/Output Vital Signs: Vital Signs Temperature 98.6 F 08/10/21 07:00 Pulse Rate 91 H 08/10/21 08:17 Respiratory Rate 18 08/10/21 08:17 Blood Pressure 175/89 08/10/21 07:00 O2 Sat by Pulse Oximetry 96 08/10/21 08:17 Intake & Output: Intake & Output 08/07/21 08/08/21 08/09/21 08/10/21 11:59 11:59 11:59 11:59 Intake Total 830 2270 1060 Output Total 125 Balance 830 2145 1060 Weight 91.9 kg 87.6 kg 86.8 kg 86.3 kg - Lab Result Diagrams: 08/10/21 04:40 08/10/21 04:40 Lab Results-Last 24 Hrs: Lab Results-Last 24 Hours 08/09/21 08/09/21 08/09/21 Range/Units 12:28 15:53 17:09 WBC (4.0-10.5) K/mm3 RBC (4.1-5.6) M/mm3 Hgb (12.5-18.0) gm/dl Hct (42-50) % MCV (78-100) fl MCH (26-32) pg MCHC (32-36) g/dl RDW (11.5-14.0) % Plt Count (150-450) K/mm3 MPV (7.5-11.0) fl Gran % (36.0-66.0) % Eos # (Auto) (0-0.5) Absolute Lymphs (auto) (1.0-4.6) Absolute Monos (auto) (0.0-1.3) Lymphocytes % (24.0-44.0) % Monocytes % (0.0-12.0) % Eosinophils % (0.00-5.0) % Basophils % (0.0-0.4) % Absolute Granulocytes (1.4-6.9) Basophils # (0-0.4) Sodium (137-145) mmol/L Potassium (3.5-5.1) mmol/L Chloride (98-107) mmol/L Carbon Dioxide (22-30) mmol/L Anion Gap (5-15) MEQ/L BUN (9-20) mg/dL Creatinine (0.66-1.25) mg/dL Estimated GFR ML/MIN Glucose (74-106) mg/dL POC Glucometer 208 H 166 H (74 to 106) mg/dL Hemoglobin A1c 8.28 H (4.5-6.0) % Calcium (8.4-10.2) mg/dL Total Bilirubin (0.2-1.3) mg/dL AST (17-59) U/L ALT (0-50) U/L Alkaline Phosphatase (38-126) U/L Serum Total Protein (6.3-8.2) g/dL Albumin (3.5-5.0) g/dL 08/09/21 08/10/21 08/10/21 Range/Units 20:14 04:40 04:40 WBC 8.8 (4.0-10.5) K/mm3 RBC 5.63 H (4.1-5.6) M/mm3 Hgb 16.5 (12.5-18.0) gm/dl Hct 48.2 (42-50) % MCV 85.6 (78-100) fl MCH 29.3 (26-32) pg MCHC 34.2 (32-36) g/dl RDW 12.8 (11.5-14.0) % Plt Count 186 (150-450) K/mm3 MPV 10.4 (7.5-11.0) fl Gran % 87.0 H (36.0-66.0) % Eos # (Auto) 0.01 (0-0.5) Absolute Lymphs (auto) 0.84 L (1.0-4.6) Absolute Monos (auto) 0.28 (0.0-1.3) Lymphocytes % 9.5 L (24.0-44.0) % Monocytes % 3.2 (0.0-12.0) % Eosinophils % 0.1 (0.00-5.0) % Basophils % 0.2 (0.0-0.4) % Absolute Granulocytes 7.67 H (1.4-6.9) Basophils # 0.02 (0-0.4) Sodium 137 (137-145) mmol/L Potassium 4.4 (3.5-5.1) mmol/L Chloride 101 (98-107) mmol/L Carbon Dioxide 22 (22-30) mmol/L Anion Gap 18.3 H (5-15) MEQ/L BUN 22 H (9-20) mg/dL Creatinine 0.85 (0.66-1.25) mg/dL Estimated GFR > 60.0 ML/MIN Glucose 179 H (74-106) mg/dL POC Glucometer 285 H (74 to 106) mg/dL Hemoglobin A1c (4.5-6.0) % Calcium 10.1 (8.4-10.2) mg/dL Total Bilirubin 0.60 (0.2-1.3) mg/dL AST 23 (17-59) U/L ALT 21 (0-50) U/L Alkaline Phosphatase 83 (38-126) U/L Serum Total Protein 7.8 (6.3-8.2) g/dL Albumin 4.6 (3.5-5.0) g/dL 08/10/21 Range/Units 07:49 WBC (4.0-10.5) K/mm3 RBC (4.1-5.6) M/mm3 Hgb (12.5-18.0) gm/dl Hct (42-50) % MCV (78-100) fl MCH (26-32) pg MCHC (32-36) g/dl RDW (11.5-14.0) % Plt Count (150-450) K/mm3 MPV (7.5-11.0) fl Gran % (36.0-66.0) % Eos # (Auto) (0-0.5) Absolute Lymphs (auto) (1.0-4.6) Absolute Monos (auto) (0.0-1.3) Lymphocytes % (24.0-44.0) % Monocytes % (0.0-12.0) % Eosinophils % (0.00-5.0) % Basophils % (0.0-0.4) % Absolute Granulocytes (1.4-6.9) Basophils # (0-0.4) Sodium (137-145) mmol/L Potassium (3.5-5.1) mmol/L Chloride (98-107) mmol/L Carbon Dioxide (22-30) mmol/L Anion Gap (5-15) MEQ/L BUN (9-20) mg/dL Creatinine (0.66-1.25) mg/dL Estimated GFR ML/MIN Glucose (74-106) mg/dL POC Glucometer 208 H (74 to 106) mg/dL Hemoglobin A1c (4.5-6.0) % Calcium (8.4-10.2) mg/dL Total Bilirubin (0.2-1.3) mg/dL AST (17-59) U/L ALT (0-50) U/L Alkaline Phosphatase (38-126) U/L Serum Total Protein (6.3-8.2) g/dL Albumin (3.5-5.0) g/dL Micro Results-Entire Visit: Microbiology 08/07/21 11:45 Blood Culture - Preliminary Blood NO GROWTH TO DATE 08/07/21 11:38 Blood Culture - Preliminary Blood NO GROWTH TO DATE Accuchecks Date 08/09/21 Time 12:30 - Radiology Exams Ordered Rad Exams-Entire Visit: Radiology Procedures Category Date Time Status CHEST WITH CONTRAST [CT] Routine Exams 08/08/21 09:03 Completed ECHO W/2D AND DOPPLER [US] Routine Exams 08/08/21 10:28 Taken - Procedures and Test Procedures and Tests throughout Hospitalization: Therapy Orders & Screens 08/07/21 11:21 Respiratory Therapy Assessment DAILY Comment: Discharge Exam General Appearance: no apparent distress, alert Respiratory Exam: normal breath sounds, lungs clear, No respiratory distress Cardiovascular Exam: regular rate/rhythm, normal heart sounds Gastrointestinal/Abdomen Exam: soft, No tenderness, No mass Extremity Exam: normal inspection, normal range of motion Skin Exam: normal color, warm, dry Final Diagnosis/Problem List - Final Discharge Diagnosis/Problem (1) COPD with acute exacerbation Current Visit: Yes Status: Acute Assessment & Plan: doing well, home on levaquin, prednisone and albuterol Code(s): J44.1 - CHRONIC OBSTRUCTIVE PULMONARY DISEASE W (ACUTE) EXACERBATION (2) Abscess of chest wall Current Visit: Yes Status: Acute Assessment & Plan: resolving, no fluctuance to drain, will follow Code(s): L02.213 - CUTANEOUS ABSCESS OF CHEST WALL - Discharge Disposition: Home, Self-Care Condition: Stable Prescriptions: New Albuterol Sulfate [Albuterol Sulfate Hfa] 2 puffs IH Q4-6HPRN PRN #2 PRN Reason: Shortness Of Breath Prednisone 20 mg [Deltasone 20 mg] 20 mg PO UD #18 tablet Levofloxacin [Levaquin] 750 mg PO DAILY #4 tablet Albuterol Sulfate [Albuterol Sulfate Hfa] 8.5 gm IH Q4-6HPRN PRN #2 packet PRN Reason: Shortness Of Breath Continue Metformin HCl 500 mg [Glucophage 500 MG] 500 mg PO BID Insulin NPH Human Isophane [Novolin N] 30 unit SQ BID Carvedilol 3.125 mg [Coreg 3.125 MG] 3.125 mg PO BID Lisinopril/Hydrochlorothiazide [Lisinopril-Hctz 20-12.5 mg Tab] 0.5 tab PO DAILY Atorvastatin Calcium [Lipitor] 40 mg PO DAILY Follow up with: POLLY GERBER [ACTIVE STAFF] - (follow up in 2 weeks after d/c'd) NIDHI BAIG MD [Primary Care Provider] - 1 Week
[2021-08-10] MEDS: Glucophage 500 MG PO SCH (08:44)
[2021-08-10] MEDS: Novolin N SQ SCH (08:44)
[2021-08-10] MEDS: PROTONIX 40 MG IV IV SCH (09:12)
[2021-08-10] MEDS: Levofloxacin 500 MG Tablet PO SCH (09:13)
[2021-08-10] MEDS: Acidophilus TABLET PO SCH (09:13)
[2021-08-10] MEDS: Zestril 10 MG PO SCH (09:13)
[2021-08-10] MEDS: Levofloxacin 250MG Tablet PO SCH (09:13)
[2021-08-10] MEDS: Coreg 3.125 MG PO SCH (09:13)
[2021-08-10] MEDS: Mucinex 600MG ER Tabs PO SCH (09:13)
[2021-08-10] MEDS: hydroDIURIL 25 MG PO SCH (09:13)
[2021-08-10] MEDS: ENOXAPARIN SODIUM SQ SCH (09:13)
[2021-08-10] MEDS: Flonase NASAL NS SCH (09:13)
--- NOTE | 2021-08-11 09:09 | ECHO ---
DATE OF PROCEDURE: 08/08/2021 CLINICAL INFORMATION: Dyspnea on exertion. The M-mode 2D, and Doppler echocardiogram including color flow Doppler shows the left ventricle is normal in size at 4.7 cm. No thrombus is noted. The septal wall thickness is increased at 1.2 cm. The left ventricular posterior wall thickness is increased at 1.2 cm. There is normal contractility of the left ventricle. The ejection fraction is calculated to be 84%. The mitral valve E/A inflow velocity ratio is decreased at 0.65 consistent with possible impaired left ventricular relaxation. The right ventricle is grossly normal. The left atrium is mildly dilated with a dimension of 4.7 cm. The interatrial septum is intact. The right atrium is normal. The aortic valve opens well. There is no aortic regurgitation. The mitral valve is normal. The tricuspid valve is normal. The pulmonic valve is not well visualized. The aortic root is 2.9 cm. There is no pericardial effusion present. IMPRESSION: 1) BORDERLINE CONCENTRIC LEFT VENTRICULAR HYPERTROPHY. 2) POSSIBLE IMPAIRED LEFT VENTRICULAR RELAXATION. 3) NORMAL CONTRACTILITY OF THE LEFT VENTRICLE. 4) MILD LEFT ATRIAL DILATATION.
== END 2021-08-10 10:00 | disposition home or self-care (01) ==
LOC: ED 10:49 → MED SURG 18:27
PROVIDERS: ADMIT General Practice; ATTEND Family Medicine
DX: J44.1 Chronic obstructive pulmonary disease with (acute) exacerbation (principal); E11.9 Type 2 diabetes mellitus without complications; I10 Essential (primary) hypertension; E78.5 Hyperlipidemia, unspecified; R07.9 Chest pain, unspecified; Z79.899 Other long term (current) drug therapy; G47.33 Obstructive sleep apnea (adult) (pediatric); L02.213 Cutaneous abscess of chest wall; R00.0 Tachycardia, unspecified; Z20.822 Contact with and (suspected) exposure to COVID-19
CPT/HCPCS: 36000; 36415; 71045; 71260; 80053; 82947; 83036; 83605; 83735; 83880; 84484; 85025; 85379; 87040; 93005; 93041; 93268; 93306; 94640; 94760; 99285; G0378; U0003; J1650; J1817; J2405; J2930; A9270-GY

== ENCOUNTER 2022-10-08 09:42 | Emergency (ER) | payer MEDICARE, OTHER ==
[2022-10-08] MEDS ORDERED: DUONEB 0.5-3 MG/3 ml Neb IH ONE ×2 (10:23→10:31)
--- NOTE | 2022-10-08 10:31 | ERPHSYRPT ---
- History of Present Illness Time Seen by Provider: 10/08/22 09:55 Source: patient, family Exam Limitations: no limitations Patient Subjective Stated Complaint: C/O cough for the past few months. States it is now productive with yellow sputum. Periods of SOB; NO SOB at this time. Triage Nursing Assessment: Patient ambulated back to ED without difficulties. No SOB noted. Patient's face is slightly flushed. Alert and oriented; answering questions appropriately. An occassional, non-productive cough noted during triage assessment. Physician History: 72 years old male presented in the ER with 3 months history of off-and-on cough productive of yellow-green sputum moderate in amount with occasional shortness of breath and wheezing. [facility], was given inhaler and steroid shot but symptoms does not seems to be alleviated. Reports having bouts of coughing with lying down. Does have history of sinus infections in the past and also has frontal headache. No fever or chills reported. Because of repeated coughing feeling soreness in both sides of chest. No difficulty breathing currently. No chest pain otherwise. Denies any history of CAD. Timing/Duration: week(s), gradual onset, worse Cough Quality/Degree: moderate, productive cough, sputum Modifying Factors: Worsens With: coughing Associated Symptoms: chest pain/soreness, cough, headache, muscle aches, nasal congestion, nasal drainage, sinus infection, wheezing, No fever, No sore throat Allergies/Adverse Reactions: Sulfa (Sulfonamide Antibiotics) Allergy (Severe, Verified 10/08/22 09:52) Difficulty Breathing codeine Allergy (Verified 10/08/22 09:52) Home Medications: Metformin HCl 500 mg [Glucophage 500 MG] 500 mg PO BID 11/09/14 [History] Carvedilol 3.125 mg [Coreg 3.125 MG] 3.125 mg PO BID 09/17/18 [History] Insulin NPH Human Isophane [Novolin N] 30 unit SQ BID 09/17/18 [History] Lisinopril/Hydrochlorothiazide [Lisinopril-Hctz 20-12.5 mg Tab] 0.5 tab PO DAILY 09/17/18 [History] Atorvastatin Calcium [Lipitor] 40 mg PO DAILY 05/20/20 [History] Hx Tetanus, Diphtheria Vaccination/Date Given: Yes Hx Influenza Vaccination/Date Given: Yes Hx Pneumococcal Vaccination/Date Given: No Immunizations Up to Date: Yes Travel Risk - International Travel Have you traveled outside of the country in past 3 weeks: No - Coronavirus Screening Are you exhibiting any of the following symptoms?: Yes Symptoms: Cough: New Onset, Shortness of Breath Close contact with a COVID-19 positive Pt in past 14-21 Days: No - Vaccine Status Have you recieved a Covid-19 vaccination: Yes Desktop Publ[employer]: [employer] - Vaccination Dates Date of 2cond Vaccination (if applicable): 2020 - Review of Systems Constitutional: No Symptoms Eyes: No Symptoms Ears, Nose, & Throat: Sinus Drainage Respiratory: Cough Cardiac: No Symptoms Abdominal/Gastrointestinal: No Symptoms Genitourinary Symptoms: No Symptoms Musculoskeletal: No Symptoms Neurological: No Symptoms Psychological: No Symptoms Endocrine: No Symptoms Hematologic/Lymphatic: No Symptoms Immunological/Allergic: No Symptoms - Past Medical History Pertinent Past Medical History: Yes Neurological History: No Pertinent History ENT History: No Pertinent History Cardiac History: High Cholesterol, Hypertension Respiratory History: Bronchitis, Pneumonia, Sleep Apnea Endocrine Medical History: Diabetes Type II Musculoskeletal History: No Pertinent History GI Medical History: Gallbladder Disease History: Other Psycho-Social History: No Pertinent History Male Reproductive Disorders: No Pertinent History Other Medical History: kidney stones, COVID-19 in May 2022 - Past Surgical History Past Surgical History: Yes Neuro Surgical History: No Pertinent History Cardiac: No Pertinent History Respiratory: No Pertinent History Gastrointestinal: Cholecystectomy Genitourinary: No Pertinent History Musculoskeletal: Orthopedic Surgery Male Surgical History: No Pertinent History Other Surgical History: left rotator cuff - Social History Smoking Status: Never smoker Exposure to second hand smoke: Yes Drug Use: marijuana Patient Lives Alone: No - Nursing Vital Signs Nursing Vital Signs: Initial Vital Signs Temperature 98 F 10/08/22 09:53 Pulse Rate 75 10/08/22 09:53 Respiratory Rate 18 10/08/22 09:53 Blood Pressure 167/79 10/08/22 09:53 O2 Sat by Pulse Oximetry 99 10/08/22 09:53 Pain Scale Pain Intensity 3 - Physical Exam General Appearance: no apparent distress, alert Eye Exam: PERRL/EOMI Ears, Nose, Throat Exam: TMs normal, pharyngeal erythema, other (Maxillary tenderness bilaterally) Neck Exam: normal inspection, non-tender, supple, full range of motion Respiratory Exam: wheezing, No respiratory distress, No diminished breath sounds Cardiovascular Exam: regular rate/rhythm, normal heart sounds Gastrointestinal/Abdomen Exam: soft Back Exam: normal inspection Extremity Exam: normal inspection, normal range of motion Neurologic Exam: alert, oriented x 3, cooperative, 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 Skin Exam: normal color SpO2 Interpretation: normal SpO2: 99 O2 Delivery: Room Air Ordered Tests: Medication Summary Discontinued Medications Generic Name Dose Route Start Last Admin Trade Name Mehrdad PRN Reason Stop Dose Admin Albuterol/Ipratropium 3 ml 10/08/22 10:23 10/08/22 10:35 Ipratropium/Albuterol Sulfate 3 Ml Ampul.Neb IH 10/08/22 10:24 3 ml STAT ONE Administration Albuterol/Ipratropium Confirm 10/08/22 10:31 Ipratropium/Albuterol Sulfate 3 Ml Ampul.Neb Administered 10/08/22 10:32 Dose 3 ml IH .STK-MED ONE Lab/Rad Data: Laboratory Result Diagrams 10/08/22 10:46 10/08/22 10:46 Laboratory Results 10/08/22 10/08/22 10/08/22 Range/Units 10:50 10:46 10:46 WBC (4.0-10.5) x10^3/uL RBC (4.1-5.6) x10^6/uL Hgb (12.5-18.0) g/dL Hct (42-50) % MCV (78-100) fL MCH (26-32) pg MCHC (32-36) g/dL RDW (11.5-14.0) % Plt Count (150-450) x10^3/uL MPV (7.5-11.0) fL Gran % (36.0-66.0) % Immature Gran % (Auto) (0.00-0.4) % Nucleat RBC Rel Count (0.00-0.1) % Eos # (Auto) (0-0.5) x10^3/uL Immature Gran # (Auto) (0.00-0.03) x10^3u/L Absolute Lymphs (auto) (1.0-4.6) x10^3/uL Absolute Monos (auto) (0.0-1.3) x10^3/uL Absolute Nucleated RBC (0.00-0.01) x10^3u/L Lymphocytes % (24.0-44.0) % Monocytes % (0.0-12.0) % Eosinophils % (0.00-5.0) % Basophils % (0.0-0.4) % Absolute Granulocytes (1.4-6.9) x10^3/uL Basophils # (0-0.4) x10^3/uL Sodium 135 L (137-145) mmol/L Potassium 4.3 (3.5-5.1) mmol/L Chloride 101 (98-107) mmol/L Carbon Dioxide 28 (22-30) mmol/L Anion Gap 10.2 (5-15) MEQ/L BUN 13 (9-20) mg/dL Creatinine 0.63 L (0.66-1.25) mg/dL Estimated GFR > 60.0 ML/MIN Glucose 111 H (74-106) mg/dL Lactic Acid 1.4 (0.4-2.0) Calcium 9.6 (8.4-10.2) mg/dL Magnesium 2.0 (1.6-2.3) mg/dL Total Bilirubin 0.70 (0.2-1.3) mg/dL AST 21 (17-59) U/L ALT 24 (0-50) U/L Alkaline Phosphatase 90 (38-126) U/L Troponin I < 0.012 (0.000-0.034) ng/mL NT-Pro-B Natriuret Pep 47.4 (0-900) pg/mL Serum Total Protein 7.7 (6.3-8.2) g/dL Albumin 4.6 (3.5-5.0) g/dL 10/08/22 Range/Units 10:46 WBC 7.7 (4.0-10.5) x10^3/uL RBC 5.71 H (4.1-5.6) x10^6/uL Hgb 16.6 (12.5-18.0) g/dL Hct 50.2 H (42-50) % MCV 87.9 (78-100) fL MCH 29.1 (26-32) pg MCHC 33.1 (32-36) g/dL RDW 12.7 (11.5-14.0) % Plt Count 209 (150-450) x10^3/uL MPV 9.6 (7.5-11.0) fL Gran % 64.5 (36.0-66.0) % Immature Gran % (Auto) 0.4 (0.00-0.4) % Nucleat RBC Rel Count 0.0 (0.00-0.1) % Eos # (Auto) 0.61 H (0-0.5) x10^3/uL Immature Gran # (Auto) 0.03 (0.00-0.03) x10^3u/L Absolute Lymphs (auto) 1.45 (1.0-4.6) x10^3/uL Absolute Monos (auto) 0.59 (0.0-1.3) x10^3/uL Absolute Nucleated RBC 0.00 (0.00-0.01) x10^3u/L Lymphocytes % 18.7 L (24.0-44.0) % Monocytes % 7.6 (0.0-12.0) % Eosinophils % 7.9 H (0.00-5.0) % Basophils % 0.9 (0.0-0.4) % Absolute Granulocytes 4.99 (1.4-6.9) x10^3/uL Basophils # 0.07 (0-0.4) x10^3/uL Sodium (137-145) mmol/L Potassium (3.5-5.1) mmol/L Chloride (98-107) mmol/L Carbon Dioxide (22-30) mmol/L Anion Gap (5-15) MEQ/L BUN (9-20) mg/dL Creatinine (0.66-1.25) mg/dL Estimated GFR ML/MIN Glucose (74-106) mg/dL Lactic Acid (0.4-2.0) Calcium (8.4-10.2) mg/dL Magnesium (1.6-2.3) mg/dL Total Bilirubin (0.2-1.3) mg/dL AST (17-59) U/L ALT (0-50) U/L Alkaline Phosphatase (38-126) U/L Troponin I (0.000-0.034) ng/mL NT-Pro-B Natriuret Pep (0-900) pg/mL Serum Total Protein (6.3-8.2) g/dL Albumin (3.5-5.0) g/dL - Progress Progress: improved Air Movement: good Progress Note: 10/08/22 11:37 72 years old is evaluated for worsening cough productive of yellow-green sputum with some wheezing. Given DuoNeb, feeling much better on reevaluation. Chest x-ray negative for any acute cardiopulmonary findings. Normal white count, lactate grossly unremarkable chemistries including troponin. I believe patient has bronchitis and had symptoms for quite some time, I will give him doxycycline along with a short course of steroids and outpatient follow-up. Recommended continue with inhaler. Part of his symptoms could be allergic in nature secondary to work-related. He is advised to use mask all the time. Discussed signs symptoms of worsening needing return to ER which she seems understanding. Stable for discharge. Antibiotics given: Yes Counseled pt/family regarding: lab results, diagnosis, need for follow-up, rad results - Departure Departure Disposition: Home Clinical Impression: Bronchitis Condition: Stable Critical Care Time: No Referrals: NIDHI BAIG MD [Primary Care Provider] - Follow Up with PCP/3 days Instructions: Cough, Adult (DC) Additional Instructions: Use inhaler as recommended. Use mask all the time while working. Follow-up with primary care for reevaluation. Return to ER for worsening cough or if villafana ving difficulty breathing etc. Prescriptions: Prednisone 20 mg [Deltasone 20 mg] 60 mg PO DAILY 5 Days #15 tablet Doxycycline Hyclate 100 mg [Vibramycin 100 MG] 100 mg PO BID #14 tab
--- NOTE | 2022-10-08 10:43 | XRAY ---
Indication: Cough. Comparison: September 19, 2022 Portable chest remains clear. Heart not enlarged again with mild tortuous descending aorta. No new/acute findings.
[2022-10-08 10:47] LABS: Absolute Neutrophil Ct (ANC) 4.99 x10^3/uL (1.4-6.9); Basophil (Absolute #) 0.07 x10^3/uL (0-0.4); Eosinophil % 7.9 % (0.00-5.0); Eosinophil (Absolute #) 0.61 x10^3/uL (0-0.5); Hematocrit 50.2 % (42-50); Hemoglobin 16.6 g/dL (12.5-18.0); Lymphocyte (Absolute #) 1.45 x10^3/uL (1.0-4.6); Lymphocytes % 18.7 % (24.0-44.0); Mean Cell Volume 87.9 fL (78-100); Mean Corpuscular Hemoglobin 29.1 pg (26-32); Mean Corpuscular Hgb Concent. 33.1 g/dL (32-36); Mean Platelet Volume 9.6 fL (7.5-11.0); Monocyte (Absolute #) 0.59 x10^3/uL (0.0-1.3); Monocytes % 7.6 % (0.0-12.0); Neutrophil % 64.5 % (36.0-66.0); Platelet Count 209 x10^3/uL (150-450); Red Blood Count 5.71 x10^6/uL (4.1-5.6); Red Cell Distribution Width 12.7 % (11.5-14.0); White Blood Count 7.7 x10^3/uL (4.0-10.5)
[2022-10-08 11:12] LABS: ALBUMIN 4.6 g/dL (3.5-5.0); ALKALINE PHOSPHATASE 90 U/L (38-126); ANION GAP 10.2 MEQ/L (5-15); BLOOD UREA NITROGEN 13 mg/dL (9-20); CHLORIDE 101 mmol/L (98-107); Calcium 9.6 mg/dL (8.4-10.2); Carbon Dioxide 28 mmol/L (22-30); Creatinine 1 0.63 mg/dL (0.66-1.25); EST GLOMERULAR FILTRATION RATE > 60.0 ML/MIN; Glucose 111 mg/dL (74-106); NT PRO BNP 47.4 pg/mL (0-900); Potassium 4.3 mmol/L (3.5-5.1); SGOT/AST 21 U/L (17-59); SGPT/ALT 24 U/L (0-50); SODIUM 135 mmol/L (137-145); Total Protein 7.7 g/dL (6.3-8.2)
[2022-10-08 11:58] VITALS: BP 141/77; PULSE 71
[2022-10-11 21:47] VITALS: O2SAT 99
== END 2022-10-08 12:05 | disposition home or self-care (01) ==
LOC: ED 09:42
DX: J40 Bronchitis, not specified as acute or chronic (principal); R05.9 Cough, unspecified; E78.5 Hyperlipidemia, unspecified; I10 Essential (primary) hypertension; E11.9 Type 2 diabetes mellitus without complications; Z79.4 Long term (current) use of insulin; Z79.84 Long term (current) use of oral hypoglycemic drugs; Z79.52 Long term (current) use of systemic steroids; Z79.899 Other long term (current) drug therapy; Z86.16 Personal history of COVID-19
CPT/HCPCS: 36415; 71045; 80053; 83605; 83735; 83880; 84484; 85025; 94640; 99283; A9270-GY

== ENCOUNTER 2024-07-02 06:23 | Day surgery (SDC) | payer MEDICARE ==
[2024-07-02] MEDS ORDERED: Lactated Ringers 1,000 ML IV ONE (06:43)
[2024-07-02 06:53] VITALS: RESP 18
[2024-07-02] MEDS: Lactated Ringers 1,000 ML IV SCH (06:57)
[2024-07-02] MEDS ORDERED: DIPRIVAN 200 MG/20 ML IV ONE ×2 (07:50→08:20)
[2024-07-02] MEDS ORDERED: Xylocaine-Mpf 2% 5 Ml Vial ONE (08:00)
[2024-07-02 09:13] VITALS: BP 154/81; PULSE 77; TEMP 98.6; O2SAT 96
--- NOTE | 2024-07-03 11:08 | OP ---
SURGERY DATE/TIME: 07/02/2024 5155 - 2521 PREOPERATIVE DIAGNOSIS: Screening colonoscopy. POSTOPERATIVE DIAGNOSIS: Colon polyps x2. PROCEDURE: Colonoscopy. SURGEON: Stanley Mendez MD ANESTHESIA: MAC. ESTIMATED BLOOD LOSS: Minimal. SPECIMENS: There were 2 hot forceps polypectomies from the sigmoid colon. DESCRIPTION OF PROCEDURE AND FINDINGS: After informed written consent was obtained, the patient was taken to the endoscopy suite. He was placed in the left lateral decubitus position and anesthesia was titrated to the desired level of consciousness. Digital rectal exam showed normal sphincter tone and no internal lesions. The scope was inserted in the rectum, and sequentially the entire colonic mucosa was traversed. The level of the cecum was reached and verified with direct visualization of the ileocecal valve. Upon withdrawal, there was a small sessile polyp in the sigmoid colon proximal region. It was grasped with the forceps, cauterized, and removed in its entirety and sent for pathology. Further down there was a slightly larger sessile polyp in the distal sigmoid which was likewise grasped with forceps, removed in piecemeal fashion and electrocautery was used with the entire lesion appearing to be well removed and hemostatic following removal. Prior to withdrawal, retroflexion showed no internal lesions. Scope was removed and patient was transferred to the recovery room in good condition. He has been advised to follow up in 1 week for pathology results and followup recommendation.
== END 2024-07-02 09:15 | disposition home or self-care (01) ==
LOC: SDC 06:23
PROVIDERS: ATTEND Family Medicine
DX: Z12.11 Encounter for screening for malignant neoplasm of colon (principal); E11.9 Type 2 diabetes mellitus without complications; D12.5 Benign neoplasm of sigmoid colon
CPT/HCPCS: 76937; 82947; 99100; J2704